=== PATIENT | female | born 1955 | race Caucasian/White ===

== ENCOUNTER → 2019-03-10 10:12 | Outpatient (BNVA) | payer MEDICARE, SELFPAY | PROVIDERS: Family Provider Family Medicine; PCP Family Medicine; Visit Provider Orthopaedic Surgery | DX: M25.562 Pain in left knee (principal); M25.561 Pain in right knee | CPT/HCPCS: 73565 ==

== ENCOUNTER 2019-09-19 09:03 | Observation (INO) | payer MEDICARE, SELFPAY ==
[2019-09-19] VITALS (36 sets, daily range): BP systolic 101–195; BP diastolic 59–115; PULSE 76–139; RESP 14–26; TEMP 36.7–37; O2SAT 92–97; BMI 46.3
--- NOTE | 2019-09-19 09:41 | ECG_ITS ---
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 Measurements Intervals [place] Rate: 141 P: [place]: -1 QRS: 34 QRSD: 92 T: 7 QT: 307 QTc: 472 Interpretive Statements ATRIAL FIBRILLATION WITH RAPID VENTRICULAR RESPONSE LOW QRS VOLTAGE IN PRECORDIAL LEADS [QRS DEFLECTION < 1.0 mV IN CHEST LEADS] ABNORMAL RHYTHM ECG No previous ECG available for comparison Electronically Signed On 09-19-2019 20:43:15 CDT by Eliecer Hernandez M.D. [id number]
--- NOTE | 2019-09-19 09:42 | XRR_ITS ---
PROCEDURE INFORMATION: Exam: XR Chest, 1 View Exam date and time: 09/19/2019 9:53 AM Age: 63 years old Clinical indication: Cough and dyspnea; Additional info: Dyspnea/cough TECHNIQUE: Imaging protocol: XR of the chest Views: 1 view. COMPARISON: No relevant prior studies available. FINDINGS: Lungs: Lungs are well aerated without a focal area of consolidation. Pleural space: Unremarkable. No pleural effusion. No pneumothorax. Heart/Mediastinum: Cardiac silhouette is enlarged. Bones/joints: Unremarkable. XR/XR chest 1V portable [id number] IMPRESSION: Lungs are well aerated without a focal area of consolidation.
--- NOTE | 2019-09-19 09:43 | W.ED.ARRPALP ---
HPI - Arrhythmia/Palpitations General: Chief Complaint: Arrhythmia/Palpitations Stated Complaint: POSS AFIB Time Seen by Provider: 09/19/19 09:14 History of Present Illness: HPI narrative: 63-year-old female presented this morning to Dr. Sky's office for a elective cataract surgery and her preop phase was found to be in A. fib with RVR they are unable to get into primary care doctor's office so she was directed to the emergency room she is completely asymptomatic both at the doctor's office and here. She does notice she gets short of breath when she does a certain amount of activity but she states it is about the same level of exertion bring about the shortness of breath as always. MD complaint: irregular heart beat Onset (ago): unknown Severity: moderate Context: other (Found during preop for elective cataract surgery) Arrhythmia history: other (No known previous arrhythmias) Associated symptoms: Reports no associated symptoms; Deny nausea or vomiting Review of Systems Const: Denies: fever(s), chills, body aches, change in appetite, fatigue or malaise ENMT: Denies: throat pain, ear or mastoid pain, nasal discharge or nasal congestion Card: Denies: chest pain, edema, dyspnea on exertion or orthopnea Resp: Denies: dyspnea, productive cough or non-productive cough GI: Denies: abdominal pain, nausea, vomiting, hematemesis, coffee ground emesis, diarrhea, constipation, bloating, hematochezia or melena : Denies: flank pain, difficulty voiding, dysuria, urinary frequency or urinary urgency Skin/Breast: Denies: rash or pruritus PFSH ED PFSH: Medical History (Updated 09/21/19 @ 00:00 by ) BMI 45.0-49.9, adult Degenerative arthritis of right knee Diabetes mellitus Diabetic neuropathy Hypertension Osteoarthritis of knees, bilateral Osteoarthritis of left knee Surgical History History of breast biopsy History of colonoscopy History of D&C Family History Father Cancer Grandfather Cancer Grandmother Cancer Dementia Mother Dementia Denies family history of Diabetes CAD (coronary artery disease) Clotting disorder Hyperlipidemia Psychiatric illness Chronic kidney disease (CKD) Suicide Anesthesia complication Bleeding disorder Family history of premature coronary artery disease Lung disease Hypertension Stroke Social History Smoking and tobacco status: never smoked Second hand smoke exposure: No Alcohol intake: never Current occupational status: retired Physical Exam Const: COMMON NORMALS: no acute distress GENERAL APPEARANCE: cooperative and comfortable ORIENTATION/CONSCIOUSNESS: Yes awake, Yes oriented to person, Yes oriented to place and Yes oriented to time HENMT: COMMON NORMALS: normocephalic and atraumatic HEAD & SCALP: normocephalic and atraumatic Eye: COMMON NORMALS: Equal, round and reactive pupils present, EOMs intact bilaterally, conjunctivae normal and no scleral icterus CONJUNCTIVA: Yes conjunctivae normal PUPIL: Yes Equal, round and reactive pupils present Neck/C-Spine: COMMON NORMALS: full ROM, no lymphadenopathy, supple and no JVD Lymph: LYMPHATIC: no lymphadenopathy noted and no lymphedema noted Resp: COMMON NORMALS: normal respiratory effort, No retractions, No use of accessory muscles and clear to auscultation bilaterally AUSCULTATION: clear to auscultation bilaterally Cardio: COMMON NORMALS: no JVD and No murmurs present (Cardio) RATE: tachycardic RHYTHM: abnormal rhythm irregularly irregular GI: COMMON NORMALS: Soft to palpation and No hepatosplenomegaly present AUSCULTATION: Yes normoactive bowel sounds PALPATION: Yes Soft to palpation, No Tenderness to palpation present (GI), No Guarding due to palpation present (GI) and Yes No hepatosplenomegaly present Extremity: COMMON NORMALS: normal to inspection, capillary refill normal, no clubbing, cyanosis or edema, no calf tenderness and no pedal edema Neuro: SENSORIUM/ORIENTATION: Yes oriented to person, Yes oriented to place and Yes oriented to time Skin: COMMON NORMALS: no rashes or lesions noted GENERAL SKIN EXAM: no rashes or lesions noted Course Vital Signs: Vital signs: Vital Signs Temperature 98.3 F 09/20/19 17:06 Pulse Rate 93 09/20/19 17:06 Respiratory Rate 16 09/20/19 17:06 Blood Pressure 136/68 09/20/19 17:06 Pulse Oximetry 93 09/20/19 17:06 MDM - Arrhythmia/Palpitations MDM Narrative: Medical decision making narrative: Patient presents in A. fib with rapid ventricular response. Started on diltiazem raise began to be controlled will admit to CSU. Lab Data: Labs: Lab Results 09/19/19 09/19/19 09/19/19 Range/Units 09:35 09:35 09:35 WBC 10.2 H (4.0-10.0) 10^3/ uL RBC 4.20 (4.1-5.3) 10^6/u L Hgb 11.2 L (11.5-15.3) g/dL Hct 35.3 L (37.0-47.0) % MCV 84.0 (81-99) fL MCH 26.7 L (28.0-34.0) pg MCHC 31.7 (30.0-36.0) g/dL RDW 15.7 H (12.1-15.1) % Plt Count 392 (130-400) 10^3/c mm MPV 9.8 (7.4-10.4) fL Neut % (Auto) 81.1 % Lymph % (Auto) 10.4 % Woodruff % (Auto) 5.5 % Eos % (Auto) 1.3 % Baso % (Auto) 0.6 % Neut # (Auto) 8.32 H (1.8-7.7) 10^3/u L Lymph # (Auto) 1.1 (0.8-4.8) 10^3/u L Woodruff # (Auto) 0.6 (0.2-0.9) 10^3/u L Eos # (Auto) 0.1 (0.0-0.8) 10^3/u L Baso # (Auto) 0.1 (0.0-0.1) 10^3/u L Nucleated RBC % (a uto) 0 % Nucleated RBCs # 0.0 /100WBC Sodium 140 (136-145) mmol/L Potassium 4.5 (3.5-5.1) mmol/L Chloride 101 (98-107) mmol/L Carbon Dioxide 26 (22-29) mmol/L Anion Gap 17.5 (5-19) BUN 24 H (8-23) mg/dL Creatinine 1.0 H (0.5-0.9) mg/dL GFR Calculation 55.6 L (90-130) mL/min Glucose 200 H (65-115) mg/dL Calculated Osmolal ity 292 (285-295) mOsm/k g Calcium 9.0 (8.5-10.5) mg/dL Total Bilirubin 0.8 (0.15-1.2) mg/dL AST 14 (0-32) U/L ALT 9 (0-33) U/L Alkaline Phosphata se 80 (35-105) IU/L Troponin T Baselin e 37 H (0-10) ng/L Total Protein 7.0 (6.6-8.7) g/dL Albumin 4.0 (3.5-5.2) g/dL Globulin 3.0 (1.3-4.6) g/dL TSH (0.27-4.20) uIU/ mL 09/19/19 Range/Units 09:35 WBC (4.0-10.0) 10^3/ uL RBC (4.1-5.3) 10^6/u L Hgb (11.5-15.3) g/dL Hct (37.0-47.0) % MCV (81-99) fL MCH (28.0-34.0) pg MCHC (30.0-36.0) g/dL RDW (12.1-15.1) % Plt Count (130-400) 10^3/c mm MPV (7.4-10.4) fL Neut % (Auto) % Lymph % (Auto) % Woodruff % (Auto) % Eos % (Auto) % Baso % (Auto) % Neut # (Auto) (1.8-7.7) 10^3/u L Lymph # (Auto) (0.8-4.8) 10^3/u L Woodruff # (Auto) (0.2-0.9) 10^3/u L Eos # (Auto) (0.0-0.8) 10^3/u L Baso # (Auto) (0.0-0.1) 10^3/u L Nucleated RBC % (a uto) % Nucleated RBCs # /100WBC Sodium (136-145) mmol/L Potassium (3.5-5.1) mmol/L Chloride (98-107) mmol/L Carbon Dioxide (22-29) mmol/L Anion Gap (5-19) BUN (8-23) mg/dL Creatinine (0.5-0.9) mg/dL GFR Calculation (90-130) mL/min Glucose (65-115) mg/dL Calculated Osmolal ity (285-295) mOsm/k g Calcium (8.5-10.5) mg/dL Total Bilirubin (0.15-1.2) mg/dL AST (0-32) U/L ALT (0-33) U/L Alkaline Phosphata se (35-105) IU/L Troponin T Baselin e (0-10) ng/L Total Protein (6.6-8.7) g/dL Albumin (3.5-5.2) g/dL Globulin (1.3-4.6) g/dL TSH 1.94 (0.27-4.20) uIU/ mL Discharge Plan Discharge Patient Disposition: Admitted As Inpatient Admit Provider: Lilibeth Villalpando Condition: Stable Referrals: Brianna Gonzales MD [Primary Care Provider] - 1-3 days (You have an follow-up appointment with Dr. Gonzales on September 25 at 10:00a.m. If you have any questions or need to reschedule. Please call ) Winifred Kincaid FNP [Nurse Practitioner] - 1 week (You have an follow-up appointment with Winifred Kincaid on September 27 at 10:00a.m. If you have questions or need to reschedule. Please call ) Discharge Diet: Cardiac and Diabetic Discharge Activity: Increase activity as tolerated Patient Instructions: Metoprolol (By mouth), Diltiazem (By mouth), Apixaban (By mouth), Atrial Fibrillation (DC), Diabetes Mellitus Type 2 in Adults (DC), Hypertension (DC) Additional Instructions: You were admitted to the hospital and diagnosed with atrial fibrillation, irregular heartbeat. You were started on medications to help with heart rate control. -Continue on metoprolol 50 mg twice daily, take this 12 hours apart -Started on Cardizem. First 2 doses of Cardizem will be 60mg every 6 hours. Take first dose on 09/20/19 at 6pm. Then take 2nd dose of cardizem 60mg at midnight. When you wake up on 09/21/19 take Cardizem CD 240mg and continue on this daily. -Atrial fibrillation can place you at increased risk of stroke, therefore a blood thinner was prescribed to help decrease this risk. The blood thinner that you are prescribed is Eliquis 5mg twice daily Please call your physician or present to the ED for any acute illness or concerns. Any chest pain or shortness of breath present to the ED. Please check your blood pressure and present a log to your PCP and monitor heart rate. If your heart rate is less than 60 please call your physician. Stop taking enalapril/HCTZ at this time. Discharge Date/Time: 09/19/19 17:38 Coding Level of Care Code ED Infection Control Rn for Ching Fwd Exam Comprehensive
[2019-09-19 09:53] LABS: Basophils # 0.1 10^3/uL (0.0-0.1); Basophils % 0.6 %; Eosinophils # 0.1 10^3/uL (0.0-0.8); Eosinophils % 1.3 %; Hematocrit 35.3 % (37.0-47.0); Hemoglobin 11.2 g/dL (11.5-15.3); Lymphocytes # 1.1 10^3/uL (0.8-4.8); Lymphocytes % 10.4 %; Mean Corpuscular HGB Conc 31.7 g/dL (30.0-36.0); Mean Corpuscular Hemoglobin 26.7 pg (28.0-34.0); Mean Platelet Volume 9.8 fL (7.4-10.4); Monocytes # 0.6 10^3/uL (0.2-0.9); Monocytes % 5.5 %; Neutrophils # 8.32 10^3/uL (1.8-7.7); Neutrophils % 81.1 %; Nucleated Red Blood Cells % 0 %; Platelet Count 392 10^3/cmm (130-400); Red Cell Distribution Width 15.7 % (12.1-15.1); White Blood Count 10.2 10^3/uL (4.0-10.0)
[2019-09-19 10:05] LABS: Troponin(5th) Baseline 37 ng/L (0-10)
[2019-09-19 10:06] LABS: Alanine Aminotransferase 9 U/L (0-33); Alkaline Phosphatase 80 IU/L (35-105); Anion Gap 17.5 (5-19); Aspartate Amino Transferase 14 U/L (0-32); Blood Urea Nitrogen 24 mg/dL (8-23); Carbon Dioxide 26 mmol/L (22-29); Chloride 101 mmol/L (98-107); Creatinine Clr Calc Pharmacy 72.4342; Glomerular Filtration Rate 55.6 mL/min (90-130); Glucose 200 mg/dL (65-115); Osmolality Calculated 292 mOsm/kg (285-295); Potassium 4.5 mmol/L (3.5-5.1); Sodium 140 mmol/L (136-145); Total Bilirubin 0.8 mg/dL (0.15-1.2)
[2019-09-19] MEDS: sodium chloride 0.9% 500 ML 999 ML IV (10:41)
[2019-09-19 11:00] LABS: Thyroid Stimulating Hormone 1.94 uIU/mL (0.27-4.20)
--- NOTE | 2019-09-19 11:08 | PM.HP ---
Providers/Chief Complaint Admitting Physician: Lilibeth Villalpando DO Primary Care Provider: Brianna Gonzales MD Chief Complaint: POSS AFIB History of Present Illness Jaci Mejía is a 63 year old female with a past medical history of hypertension and diabetes that presented to the emergency department today from outpatient surgery center. Patient was scheduled to have cataract surgery today when she arrived for her preop evaluation she was noted to have rapid heart rate. EKG was performed which showed concern for atrial fibrillation. She was then sent to the ER for further evaluation and treatment. Patient denies any recent illness, no fevers or chills. She denies any history of any irregular heartbeat that she is aware of. She denies any chest pain or shortness of breath, denies any palpitations, no lightheadedness or dizziness. She stated that she has been doing well with no concerns. Reported that she was taken off of her duloxetine slowly over the past couple of months but no other recent medication changes. She reports that her diabetes is currently diet controlled, her last hemoglobin A1c was 7 after she had been taken off of glipizide and metformin. Patient denies any cough or shortness of breath, no exposure to anyone under investigation are positive for COVID-19. Patient was seen and evaluated in the emergency department noted to have concern for atrial fibrillation with RVR and started on a Cardizem drip and placed on observation. Review of Systems Const: Denies: fever(s) or chills Eyes: Denies: change in vision ENMT: Denies: nasal congestion Card: Denies: chest pain, palpitations or edema Resp: Denies: dyspnea, productive cough or hemoptysis GI: Reports: constipation; Denies: abdominal pain, nausea, vomiting, diarrhea, hematochezia or melena : Denies: dysuria or hematuria Musc: Denies: extremity pain or muscle cramps Skin/Breast: Denies: rash or new lesions Neuro: Denies: headache(s) or dizziness Psych: Denies: anxiety or depression Endo: Denies: polyuria or hot flashes Nic/Lymph: Denies: easy bruising or easy bleeding Medications/Allergies Home Medications Medication Instructions Recorded Confirmed Last Taken Type enalapril 10 1 tab PO QAM 03/10/19 09/19/19 09/19/19 History mg-hydrochlorothiazide 25 mg tablet fexofenadine See Rx Instructions .ROUTE .COMPLEX 03/10/19 09/19/19 09/18/19 History fluticasone propionate 50 2 spray INTRANASAL QDAY 03/10/19 09/19/19 09/18/19 History mcg/actuation nasal spray,suspension gabapentin 300 mg capsule 300 mg PO BID 03/10/19 09/19/19 09/19/19 History naproxen 500 mg tablet 500 mg PO BID 03/10/19 09/19/19 09/17/19 History Diabetic Shoes #1 each 07/25/19 09/19/19 Unknown Rx difluprednate [Durezol] See Rx Instructions .ROUTE .COMPLEX 09/19/19 09/19/19 09/18/19 History nepafenac [Ilevro] See Rx Instructions .ROUTE .COMPLEX 09/19/19 09/19/19 09/18/19 History Allergies Allergy/AdvReac Type Severity Reaction Status Date / Time No Known Allergies Allergy Verified 09/19/19 10:24 PFSH Acute PFSH: Medical History (Updated 09/19/19 @ 11:21 by Lilibeth Villalpando DO) BMI 45.0-49.9, adult Degenerative arthritis of right knee Diabetes mellitus Diabetic neuropathy Hypertension Osteoarthritis of knees, bilateral Osteoarthritis of left knee Surgical History History of breast biopsy History of colonoscopy History of D&C Family History Father Cancer Grandfather Cancer Grandmother Cancer Dementia Mother Dementia Denies family history of Diabetes CAD (coronary artery disease) Clotting disorder Hyperlipidemia Psychiatric illness Chronic kidney disease (CKD) Suicide Anesthesia complication Bleeding disorder Family history of premature coronary artery disease Lung disease Hypertension Stroke Social History Smoking and tobacco status: never smoked Second hand smoke exposure: No Alcohol intake: never Current occupational status: retired Vitals/I&O/Wt Last Vital Signs Temp 98.1 F 09/19/19 09:11 Pulse 139 H 09/19/19 10:15 Resp 20 H 09/19/19 10:15 BP 133/70 09/19/19 10:15 Pulse Ox 95 09/19/19 10:15 09/18/19 09/19/19 09/19/19 22:59 06:59 14:59 Intake Total 4.9 / 4.9 Balance 4.9 / 4.9 Weight last 48 hrs Weight 122.47 kg Physical Exam Const: COMMON NORMALS: patient oriented x3 and alert GENERAL APPEARANCE: cooperative ORIENTATION/CONSCIOUSNESS: Yes awake, Yes oriented to person, Yes oriented to place and Yes oriented to time HENMT: COMMON NORMALS: normocephalic and atraumatic HEAD & SCALP: normocephalic and atraumatic Eye: COMMON NORMALS: Equal, round and reactive pupils present PUPIL: Yes Equal, round and reactive pupils present Neck/C-Spine: COMMON NORMALS: supple GENERAL: Yes normal visual inspection Resp: COMMON NORMALS: normal respiratory effort and clear to auscultation bilaterally EFFORT & INSPECTION: Yes able to speak in complete sentences AUSCULTATION: clear to auscultation bilaterally, no rhonchi and no wheezes Cardio: OTHER: Irregularly irregular, no appreciable murmur however tachycardic GI: COMMON NORMALS: Soft to palpation and non-tender INSPECTION: No abdominal distension AUSCULTATION: Yes normoactive bowel sounds PALPATION: Yes Soft to palpation : COMMON NORMALS: Yes no CVA tenderness BLADDER/KIDNEY EXAM: Yes no CVA tenderness Back/Pelvis: COMMON NORMALS: no CVA tenderness Extremity: COMMON NORMALS: no clubbing, cyanosis or edema and no calf tenderness Neuro: COMMON NORMALS: patient oriented x3, CN's II-XII intact bilaterally, moves all extremities and no focal motor deficits SENSORIUM/ORIENTATION: Yes alert, Yes oriented to person, Yes oriented to place and Yes oriented to time SPEECH: speech normal Psych: COMMON NORMALS: mental status grossly normal and cooperative Skin: COMMON NORMALS: no rashes or lesions noted GENERAL SKIN EXAM: no rashes or lesions noted Data : 09/19/19 09:35 09/19/19 09:35 CXR: I personally reviewed and interpreted this imaging study as follows: Radiologist's impression: FINDINGS: Lungs: Lungs are well aerated without a focal area of consolidation. Pleural space: Unremarkable. No pleural effusion. No pneumothorax. Heart/Mediastinum: Cardiac silhouette is enlarged. Bones/joints: Unremarkable. XR/XR chest 1V portable [id number] IMPRESSION: Lungs are well aerated without a focal area of consolidation. A&P Assessment and plan (1) Atrial fibrillation with RVR: New onset atrial fibrillation with RVR Appears slightly dry at time of exam will give very gentle IV fluids Given Cardizem while in the ED, will continue and if blood pressure is able to tolerate and patient remains tachycardic we will give IV metoprolol and transition to oral medications when appropriate Echocardiogram for further evaluation and treatment when heart rate is less than 100 Magnesium and phosphorus added Continue telemetry monitoring and serial EKG and troponin We will check TSH Chads score calculated patient has hypertension and diabetes, will start on treatment dose Lovenox at this time and transition to oral agent when appropriate. Status: Acute (2) Hypertension: Hold home enalapril/HCTZ as do not wish for patient to become hypotensive with medication adjustments for atrial fibrillation with RVR Status: Acute (3) Diabetes mellitus: Currently reported to be diet controlled, glucose of 200 on admission, will place on low-dose sliding scale insulin as needed We will check hemoglobin A1c Status: Acute Additional A&P Information Dehydration with elevated BUN and minimal elevation in creatinine, gentle IV fluids with close monitoring, strict intake and output as well as daily weights Cataract: Plan for outpatient cataract surgery today, however admitted for atrial fibrillation with RVR Leukocytosis: Minimal with no infectious etiology identified at this time, UA is pending. Likely stress reaction. Obesity DVT prophylaxis: On treatment dose Lovenox Diet: Cardiac, carbohydrate consistent CODE STATUS: Full code Attestations Medical Necessity Statement*: Observation due to new onset atrial fibrillation with RVR, expected stay less than 2 midnights Coding Level of Care Code Acute Retail Coverage Merchandiser Lead for [facility] Fwd Exam Comprehensive Diagnoses Atrial fibrillation with RVR I48.91 Hypertension I10 Diabetes mellitus E11.9
--- NOTE | 2019-09-19 11:41 | ECG_ITS ---
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 Measurements Intervals [place] Rate: 100 P: [place]: -1 QRS: 39 QRSD: 125 T: 39 QT: 352 QTc: 455 Interpretive Statements ATRIAL FIBRILLATION WITH RAPID VENTRICULAR RESPONSE MODERATE INTRAVENTRICULAR CONDUCTION DELAY [110+ ms QRS DURATION] ABNORMAL RHYTHM ECG Compared to ECG 09/19/2019 09:32:02 Intraventricular conduction delay now present Electronically Signed On 09-19-2019 20:46:04 CDT by Eliecer Hernandez M.D. [id number]
[2019-09-19 11:59] LABS: Troponin 5 2HR 29.49 ng/L (0-10)
[2019-09-19 12:00] LABS: Troponin 5 2HR Delta -7.51 ABS# (0-10)
[2019-09-19 14:10] LABS: Add Urine Microscopic? NO
[2019-09-19 14:13] LABS: Bilirubin Urine Neg (NEGATIVE); Blood Urine Neg (Negative); Glucose Urine UA Norm (Normal); Ketones Urine Negative (Negative); Leukocyte Esterase Urine Negative (Negative); Nitrate Urine Negative (Negative); Protein Urine Neg (Negative); Urine Appearance Clear (CLEAR); Urine Color Yellow (Yellow); Urobilinogen Urine Neg (Negative); pH Urine 6 (5-7)
--- NOTE | 2019-09-19 15:41 | ECG_ITS ---
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 Measurements Intervals [place] Rate: 113 P: [place]: -1 QRS: 45 QRSD: 94 T: 5 QT: 348 QTc: 478 Interpretive Statements ATRIAL FIBRILLATION WITH RAPID VENTRICULAR RESPONSE LOW QRS VOLTAGE IN PRECORDIAL LEADS [QRS DEFLECTION < 1.0 mV IN CHEST LEADS] NONSPECIFIC T-WAVE ABNORMALITY ABNORMAL RHYTHM ECG Compared to ECG 09/19/2019 11:35:30 Low QRS voltage now present T-wave abnormality now present Intraventricular conduction delay no longer present Electronically Signed On 09-19-2019 20:46:16 CDT by Eliecer Hernandez M.D. [id number]
[2019-09-19 16:27] LABS: Troponin 5 6HR 28.48 ng/L (0-10)
--- NOTE | 2019-09-19 17:50 | PC.NURSE ---
Patient arrived to floor from ER. Patient ambulated self from wheelchair to bed. Patient has personal cane at bedside. Patient A&Ox4. Currently afib, HR>100 on monitor. Cardizem increased to 10 mg/hr, see infusion spreadsheet. See physical and VS assessments. Patient oriented to room and call light. No needs identified at this time. Nurse to continue to monitor.
[2019-09-19] MEDS: sodium chloride 0.9% 1,000 ML 50 ML IV (17:56)
[2019-09-19] MEDS: docusate sodium 100 mg Capsule PO (18:03)
[2019-09-19] MEDS: metoprolol tartrate 25 mg Tablet PO (18:03)
[2019-09-19] MEDS: gabapentin 300 mg Capsule PO (18:03)
[2019-09-19 18:05] LABS: Glucose Point of Care 224 mg/dL (70-110)
[2019-09-19] MEDS: enoxaparin 120 mg/0.8 mL Syringe SUBCUT (18:07)
[2019-09-19 18:26] LABS: Magnesium 1.9 mg/dL (1.7-2.3); NT Pro B Type Natriuretic Pept 946 pg/mL (0-125); Phosphorus 3.7 mg/dL (2.5-4.5)
[2019-09-19 20:19] LABS: Glucose Point of Care 153 mg/dL (70-110)
--- NOTE | 2019-09-19 22:58 | PC.NURSE ---
Patient's heart rate is currently running in the 80s with Cardizem running at 5. Will continue to monitor and titrate/wean off Cardizem drip as needed. Will monitor blood pressure and heart rate frequently.
[2019-09-20] VITALS (38 sets, daily range): BP systolic 97–151; BP diastolic 56–107; PULSE 77–116; RESP 13–27; TEMP 36.7–37.1; O2SAT 92–97
--- NOTE | 2019-09-20 04:13 | PC.NURSE ---
Patient does not have any complaints at this time. Blood pressure is stable. Heart rate is ranging 80s-110 with Cardizem at 5. Will monitor.
[2019-09-20 04:28] LABS: Basophils % 0.5 %; Eosinophils # 0.2 10^3/uL (0.0-0.8); Hematocrit 32.2 % (37.0-47.0); Lymphocytes # 1.3 10^3/uL (0.8-4.8); Lymphocytes % 15.9 %; Mean Corpuscular HGB Conc 31.1 g/dL (30.0-36.0); Mean Corpuscular Hemoglobin 26.5 pg (28.0-34.0); Mean Corpuscular Volume 85.4 fL (81-99); Mean Platelet Volume 10.2 fL (7.4-10.4); Monocytes # 0.6 10^3/uL (0.2-0.9); Monocytes % 6.6 %; Neutrophils # 6.13 10^3/uL (1.8-7.7); Neutrophils % 73.9 %; Nucleated Red Blood Cells % 0 %; Platelet Count 346 10^3/cmm (130-400); Red Blood Count 3.77 10^6/uL (4.1-5.3); White Blood Count 8.3 10^3/uL (4.0-10.0)
[2019-09-20 04:41] LABS: Anion Gap 14.4 (5-19); Blood Urea Nitrogen 23 mg/dL (8-23); Calcium 9.2 mg/dL (8.5-10.5); Carbon Dioxide 26 mmol/L (22-29); Chloride 103 mmol/L (98-107); Glomerular Filtration Rate 62.8 mL/min (90-130); Glucose 178 mg/dL (65-115); Osmolality Calculated 289 mOsm/kg (285-295); Potassium 4.4 mmol/L (3.5-5.1); Sodium 139 mmol/L (136-145)
[2019-09-20 04:44] LABS: Chol HDL Ratio 3.83 mg/dL (0.0-4.40); Cholesterol 138 mg/dL (0-200); HDL Cholesterol 36 mg/dL (60-100); LDL Cholesterol Calculated 74 mg/dL (50-129); LDL HDL Ratio 2.06 RATIO (0.00-3.22); Triglycerides 139 mg/dL (0-150)
[2019-09-20] MEDS: enoxaparin 120 mg/0.8 mL Syringe SUBCUT (05:00)
[2019-09-20 06:14] LABS: Glucose Point of Care 189 mg/dL (70-110)
[2019-09-20] MEDS: metoprolol tartrate 25 mg Tablet PO ×2 (08:07→09:03)
[2019-09-20] MEDS: gabapentin 300 mg Capsule PO (08:07)
[2019-09-20] MEDS: fluticasone nasal spray 16gm Btl 2 SPRAY INTRANASAL (08:08)
[2019-09-20] MEDS: docusate sodium 100 mg Capsule PO (08:08)
--- NOTE | 2019-09-20 09:01 | PC.NURSE ---
Dr. Villalpando at bedside. Physician to make medication adjustments. If HR is controlled, possible d/c this pm.
--- NOTE | 2019-09-20 10:11 | PC.CHAP ---
Pastoral Care Encounter/Spiritual Assessment Type of Contact [] Declined control integration engineer visit [] Patient/Family/Request visit [] Outpatient visit [] Follow-up visit [] Physician referral [] Code/Alert [x] Routine visit [] Staff referral [] Actively dying [] Patient sleeping [] Family support [] [] Out of room [] Palliative care [] [] Receiving care in room [] Pre-surgical visit [] Trauma [] Long length of stay [] ICU visit [] Other: Relational/Emotional Strength [] Patient feels connected with others/family/visitors/staff [] Distress [] Loneliness/isolation [] Abandonment Spirituality of Patient [] Person of Cathy [] Attends Alevism of their Cathy [] Believes in Prayer [] Reads Bible or Yazidi materials [] There are Spiritual issues to be addressed Nurses Educator Interventions [x] Prayer [x] Active listening [x] Non-anxious presence [x] Spiritual/emotional support [] Crisis/trauma care [] Spiritual counseling [] Bereavement support [] Provided bereavement packet [] Provided Bible/devotional materials [] Provided toy/stuffed animal, coloring book to patient or family member [] Provided Communion [] Anointing/[place] [] Salvation [x] Completed spiritual assessment [] Other: Impact on Illness or Injury [] Angry [] Fearful [] Anxious [] Often cries [] Exhaustion [] Unable to work [] Unable to attend bahai [] Unable to walk/stand [] Unable to read [] Unable to drive [] Unable to eat/drink [] Unable to sleep [] Unable to be with family [] Patient intubated [] Other: Summary Patient tired, not resting well. Time spent with patient 10 min
[2019-09-20 11:41] LABS: Glucose Point of Care 225 mg/dL (70-110)
[2019-09-20] MEDS: dilTIAZem 60 mg Tablet PO (11:48)
--- NOTE | 2019-09-20 12:28 | PC.NURSE ---
Cardizem gtt Patient HR maintianing 80s-90s. Dr. Villalpando instructed nurse to keep gtt on for 2 hour bridge therapy after administering PO Cardizem. Nurse to continue to monitor.
--- NOTE | 2019-09-20 12:53 | PC.RESP ---
PATIENT DOES NOT HAVE A QUALIFYING HX OF LUNG DISEASE AND DOES NOT QUALIFY FOR PULMONARY REHAB AT THIS TIME.
--- NOTE | 2019-09-20 14:54 | P.DS_ITS ---
Discharge Providers Date of Admission: 09/19/19 10:53 Date of Discharge: September 20, 2019 Attending Provider at Admission: Lilibeth Villalpando DO Attending Provider at Discharge: Lilibeth Villalpando DO Primary Care Provider: Brianna Gonzales MD Diagnoses at Discharge Discharge Diagnosis (1) Atrial fibrillation with RVR: Status: Acute (2) Hypertension: Status: Acute (3) Diabetes mellitus: Status: Acute Reason for Visit Reason for Visit: POSS AFIB Hospital Course Hospital Course: Patient was seen and evaluated at outpatient surgery center for cataract surgery when she was noted to have tachycardia. EKG was performed which showed atrial fibrillation with RVR and patient was sent to the emergency department for further evaluation and treatment. Patient was asymptomatic but remained in atrial fibrillation with RVR with a heart rate into the 140s. She was started on a Cardizem drip and admitted for further evaluation and treatment. She was continued on a Cardizem drip and also started on oral metoprolol. Heart rate continued to improve however patient remained in atrial fibrillation, she was also started on treatment dose Lovenox while hospitalized. She continued to remain asymptomatic, no chest pain or shortness of breath, no lightheadedness or dizziness, no syncopal or presyncopal episodes. She was transitioned to oral Cardizem and heart rate remained less than 100 and patient remained asymptomatic and was requesting discharge to home. Discussed with patient plan for discharge to home with close cardiology follow-up and establishment with cardiology as well as close primary care provider follow-up. Discussed with patient risk for CVA with atrial fibrillation and with her diabetes and hypertension, discussed the recommendation for anticoagulation with Farida, she verbalized understanding and agreed with plan. At time of discharge patient was awake and sitting on the side of the bed denied any concerns and stated that she felt ready for discharge to home. Discussed with her in detail plan for short acting Cardizem today with transition to extended release Cardizem tomorrow morning while continuing on metoprolol twice daily, discontinuation of enalapril hydrochlorothiazide. Patient verbalized understanding Physical Exam Const: COMMON NORMALS: patient oriented x3 and alert GENERAL APPEARANCE: cooperative ORIENTATION/CONSCIOUSNESS: Yes awake, Yes oriented to person, Yes oriented to place and Yes oriented to time HENMT: COMMON NORMALS: normocephalic and atraumatic HEAD & SCALP: normocephalic and atraumatic Eye: COMMON NORMALS: Equal, round and reactive pupils present PUPIL: Yes Equal, round and reactive pupils present Neck/C-Spine: COMMON NORMALS: supple GENERAL: Yes normal visual inspection Resp: COMMON NORMALS: normal respiratory effort and clear to auscultation bilaterally EFFORT & INSPECTION: Yes able to speak in complete sentences AUSCULTATION: clear to auscultation bilaterally, no rhonchi and no wheezes Cardio: OTHER: Irregularly irregular, no appreciable murmur GI: COMMON NORMALS: Soft to palpation and non-tender INSPECTION: No abdominal distension AUSCULTATION: Yes normoactive bowel sounds PALPATION: Yes Soft to palpation Extremity: COMMON NORMALS: no clubbing, cyanosis or edema and no calf tenderness Neuro: COMMON NORMALS: patient oriented x3, CN's II-XII intact bilaterally, moves all extremities and no focal motor deficits SENSORIUM/ORIENTATION: Yes alert, Yes oriented to person, Yes oriented to place and Yes oriented to time SPEECH: speech normal Psych: COMMON NORMALS: mental status grossly normal and cooperative Skin: COMMON NORMALS: no rashes or lesions noted GENERAL SKIN EXAM: no rashes or lesions noted Discharge Data Data Completed and Pending: Completed Studies During Hospitalization Category Date Time Status XR chest 1V agusto ble [id number] Stat Exams 09/19/19 09:42 Completed Pending at discharge Category Date Time Status Basic Metabolic P maurilio AM LABS Lab 09/21/19 04:00 Ordered Basic Metabolic P maurilio AM LABS Lab 09/22/19 04:00 Ordered Complete Blood Co unt w/Auto AM LABS Lab 09/21/19 04:00 Ordered Complete Blood Co unt w/Auto AM LABS Lab 09/22/19 04:00 Ordered CV echo complete* [id number] Routine Ultrasound 09/20/19 17:34 Taken Labs from last 24 hours 09/20/19 09/20/19 09/20/19 11:37 06:10 03:15 WBC RBC Hgb Hct MCV MCH MCHC RDW Plt Count MPV Neut % (Auto) Lymph % (Auto) [place] % (Auto) Eos % (Auto) Baso % (Auto) Neut # (Auto) Lymph # (Auto) [place] # (Auto) Eos # (Auto) Baso # (Auto) Nucleated RBC % (a uto) Nucleated RBCs # Sodium Potassium Chloride Carbon Dioxide Anion Gap BUN Creatinine GFR Calculation Glucose POC Glucose 225 189 Calculated Osmolal ity Calcium Phosphorus Magnesium Troponin T Hi Sens 6Hr Troponin T Hi Sens 6Hr Delta NT-Pro-B Natriuret Pep Triglycerides 139 Cholesterol 138 LDL Cholesterol, C alc 74 HDL Cholesterol 36 L LDL/HDL Ratio 2.06 Cholesterol/HDL Ra francisco 3.83 09/20/19 09/20/19 09/19/19 03:15 03:15 20:15 WBC 8.3 RBC 3.77 L Hgb 10.0 L Hct 32.2 L MCV 85.4 MCH 26.5 L MCHC 31.1 RDW 16.0 H Plt Count 346 MPV 10.2 Neut % (Auto) 73.9 Lymph % (Auto) 15.9 [place] % (Auto) 6.6 Eos % (Auto) 2.0 Baso % (Auto) 0.5 Neut # (Auto) 6.13 Lymph # (Auto) 1.3 [place] # (Auto) 0.6 Eos # (Auto) 0.2 Baso # (Auto) 0.0 Nucleated RBC % (a uto) 0 Nucleated RBCs # 0.0 Sodium 139 Potassium 4.4 Chloride 103 Carbon Dioxide 26 Anion Gap 14.4 BUN 23 Creatinine 0.9 GFR Calculation 62.8 L Glucose 178 H POC Glucose 153 Calculated Osmolal ity 289 Calcium 9.2 Phosphorus Magnesium Troponin T Hi Sens 6Hr Troponin T Hi Sens 6Hr Delta NT-Pro-B Natriuret Pep Triglycerides Cholesterol LDL Cholesterol, C alc HDL Cholesterol LDL/HDL Ratio Cholesterol/HDL Ra francisco 09/19/19 09/19/19 09/19/19 18:00 15:25 15:25 WBC RBC Hgb Hct MCV MCH MCHC RDW Plt Count MPV Neut % (Auto) Lymph % (Auto) [place] % (Auto) Eos % (Auto) Baso % (Auto) Neut # (Auto) Lymph # (Auto) [place] # (Auto) Eos # (Auto) Baso # (Auto) Nucleated RBC % (a uto) Nucleated RBCs # Sodium Potassium Chloride Carbon Dioxide Anion Gap BUN Creatinine GFR Calculation Glucose POC Glucose 224 Calculated Osmolal ity Calcium Phosphorus 3.7 Magnesium 1.9 Troponin T Hi Sens 6Hr 28.48 H Troponin T Hi Sens 6Hr Delta -8.52 L NT-Pro-B Natriuret Pep 946 H Triglycerides Cholesterol LDL Cholesterol, C alc HDL Cholesterol LDL/HDL Ratio Cholesterol/HDL Ra francisco Vitals: Last Vital Signs Temp 98.7 F 09/20/19 11:08 Pulse 85 09/20/19 14:00 Resp 13 09/20/19 14:00 BP 123/77 09/20/19 14:00 Pulse Ox 92 09/20/19 13:52 Discharge Plan Discharge Patient Disposition: Home Condition: Stable Prescriptions: New metoprolol tartrate 50 mg Tablet 50 mg PO BID 30 Days Qty: 60 RF: 0 diltiazem HCl 60 mg Tablet 60 mg PO Q6H 1 Days Qty: 2 RF: 0 Cardizem CD 240 mg capsule,extended release 24hr 240 mg PO DAILY 30 Days Qty: 30 RF: 0 Eliquis 5 mg tablet 5 mg PO BID 30 Days Qty: 60 RF: 0 Continued gabapentin 300 mg capsule 300 mg PO BID RF: 0 fluticasone propionate 50 mcg/actuation spray,suspension 2 spray INTRANASAL QDAY RF: 0 fexofenadine See Rx Instructions .ROUTE .COMPLEX RF: 0 (DME) Diabetic Shoes See Rx Instructions .ROUTE .MEDSUPPLY Qty: 1 RF: 0 Durezol 0.05 % drops See Rx Instructions .ROUTE .COMPLEX RF: 0 Ilevro 0.3 % drops,suspension See Rx Instructions .ROUTE .COMPLEX RF: 0 Discontinued enalapril-hydrochlorothiazide 10-25 mg tablet 1 tab PO QAM RF: 0 naproxen 500 mg tablet 500 mg PO BID RF: 0 Discharge Orders: Discharge Order (Routine); Ordered 09/20/19 Ordered By: Lilibeth Villalpando Referrals: Brianna Gonzales MD [Primary Care Provider] - 1-3 days Winifred Kincaid FNP [Nurse Practitioner] - 1 week (Follow up with cardiology clinic as soon as first appointment is available then follow up with technology administrator after as directed) Discharge Diet: Cardiac and Diabetic Discharge Activity: Increase activity as tolerated Patient Instructions: Metoprolol (By mouth), Diltiazem (By mouth), Apixaban (By mouth), Atrial Fibrillation (DC), Diabetes Mellitus Type 2 in Adults (DC), Hypertension (DC) Activity Restrictions/Additional Instructions: You were admitted to the hospital and diagnosed with atrial fibrillation, irregular heartbeat. You were started on medications to help with heart rate control. -Continue on metoprolol 50 mg twice daily, take this 12 hours apart -Started on Cardizem. First 2 doses of Cardizem will be 60mg every 6 hours. Take first dose on 09/20/19 at 6pm. Then take 2nd dose of cardizem 60mg at midnight. When you wake up on 09/21/19 take Cardizem CD 240mg and continue on this daily. -Atrial fibrillation can place you at increased risk of stroke, therefore a blood thinner was prescribed to help decrease this risk. The blood thinner that you are prescribed is Eliquis 5mg twice daily Please call your physician or present to the ED for any acute illness or concerns. Any chest pain or shortness of breath present to the ED. Please check your blood pressure and present a log to your PCP and monitor heart rate. If your heart rate is less than 60 please call your physician. Stop taking enalapril/HCTZ at this time. Discharge Attestations Time Spent in Discharge Care*: greater than 30 min Specific Discharge Activities: Specific discharge activities: educating patient and documenting/other paperwork Quality Metrics Clinical Quality Measures During this hospital stay, did patient experience: None Coding Level of Care Code Acute Fluid Power Mechanic for Ching Gonzales Diagnoses Atrial fibrillation with RVR I48.91 Hypertension I10 Diabetes mellitus E11.9
--- NOTE | 2019-09-20 16:37 | PC.NURSE ---
Discharge instructions given per the physician's order. Patient verbalized understanding of medication changes and when to appropriately take medications. Patient reports that she will set an alarm at home to ensure that she wakes up to take midnight dose of cardizem. Patient verbalized understanding of S&S of worsening condition and teaches back appropriate actions to take. IVs have been removed. Patient has dressed self and contacted grandson to pick her up. No further needs identified at this time.
--- NOTE | 2019-09-20 17:34 | USCV_ITS ---
PetraJaci doshi Age: 63 Gender: F : 1955 Exam Date: 09/20/2019 07:25 Ordering Phys: Lilibeth Villalpando DO Technologist: Camryn Brar Exam Location: [facility] [place] Indication: NEW ONSET AFIB BP: 114 / 69 HR: 102 Rhythm: Atrial fibrillation Technical Quality: Adequate MEASUREMENTS (Male / Female) Normal Values 2D ECHO LV Diastolic Diameter PLAX 5.4 cm 4.2 - 5.9 / 3.9 - 5.3 cm LV Systolic Diameter PLAX 4.7 cm LV Chamber Size 4.6 cm IVS Diastolic Thickness 1.6 cm 0.6 - 1.0 / 0.6 - 0.9 cm IVS Systolic Thickness 2.1 cm LVPW Diastolic Thickness 1.2 cm 0.6 - 1.0 / 0.6 - 0.9 cm LVPW Systolic Thickness 1.3 cm RV Chamber Size 3.9 cm LVOT Diameter 2.0 cm LV Ejection Fraction 2D Teich 28.1 % LV Ejection Fraction MOD 2C 54.4 % LV Ejection Fraction 2C AL 53.5 % LA Diameter 4.5 cm LA Width 4.5 cm LA Height 5.4 cm RA Width 4.1 cm RA Height 5.9 cm Aorta at Sinotubular Diameter 3.7 cm M-MODE LV Diastolic Diameter MM 4.9 cm 4.2 - 5.9 / 3.9 - 5.3 cm LV Systolic Diameter MM 3.6 cm LV Ejection Fraction MM Teich 53.4 % IVS Diastolic Thickness MM 1.6 cm 0.6 - 1.0 / 0.6 - 0.9 cm IVS Systolic Thickness MM 1.6 cm LVPW Diastolic Thickness MM 1.6 cm 0.6 - 1.0 / 0.6 - 0.9 cm LVPW Systolic Thickness MM 2.4 cm RV Diastolic Diameter MM 1.5 cm Aortic Annulus Diameter 2.9 cm LA Ao Ratio MM 1.5 MV E Point Septal Separation 0.6 cm DOPPLER AV Peak Velocity 239.0 cm/s LVOT Peak Velocity 69.0 cm/s AV Area Cont Eq vti 1.0 cm squared AV Area Cont Eq pk 0.9 cm squared MV Area PHT 2.7 cm squared MV E' Velocity 5.0 cm/s Mitral E to MV E' Ratio 18.9 Mitral E to LV E' Lateral Ratio 28.4 Mitral E to LV E' Septal Ratio 14.2 TR Peak Velocity 278.5 cm/s TR Peak Gradient 31.0 mmHg TR Mean Velocity 191.3 cm/s TR Mean Gradient 17.0 mmHg TR Velocity Time Integral 87.7 cm TV Peak E Velocity 90.0 cm/s Right Atrial Pressure 15.0 mmHg Pulmonary Artery Systolic Pressu 46.0 mmHg PV Peak Velocity 91.0 cm/s RV Acceleration Time 0.1 s RV Ejection Time 0.3 s RV AcT/ET 0.5 FINDINGS Left Ventricle Mildly increased left ventricular cavity size. Mild left ventricular hypertrophy. Normal left ventricular systolic function. Left ventricular ejection fraction is estimated at 55 %. Rhythm precludes evaluation of diastolic function. Right Ventricle Normal right ventricular size and systolic function. Mild pulmonary hypertension, RVSP 46 mmHg. Right Atrium Mildly increased right atrial size. Inferior vena cava does not collapse with respiration. Right atrial pressure 15 mmHg Left Atrium Moderately increased left atrial size. Mitral Valve Structurally normal mitral valve. Mild mitral valve regurgitation. Aortic Valve Structurally normal trileaflet aortic valve. Moderate aortic valve calcification. No aortic valve regurgitation. There is aortic valve stenosis. The severity is unclear. The measured gradient is only slightly above 12 mmHg which would put it in the mild to moderate range. The calculated valve area however is less than 1 cm squared. I would estimate that it is closer to moderate aortic stenosis. Visually the valve looks moderately stenosed. Tricuspid Valve Structurally normal tricuspid valve. Mild tricuspid valve regurgitation. Pulmonic Valve Pulmonic valve not well visualized. Pericardium Normal pericardium without effusion. Aorta Normal ascending aorta dimension. CONCLUSIONS Mildly increased left ventricular cavity size. Mild left ventricular hypertrophy. Normal left ventricular systolic function. Left ventricular ejection fraction is estimated at 55 %. Rhythm precludes evaluation of diastolic function. Normal right ventricular size and systolic function. Mild pulmonary hypertension, RVSP 46 mmHg. Mildly increased right atrial size. Inferior vena cava does not collapse with respiration. Right atrial pressure 15 mmHg. Moderately increased left atrial size. Structurally normal mitral valve. Mild mitral valve regurgitation. Structurally normal trileaflet aortic valve. Moderate aortic valve calcification. No aortic valve regurgitation. There is aortic valve stenosis. The severity is unclear. The measured gradient is only slightly above 12 mmHg which would put it in the mild to moderate range. The calculated valve area however is less than 1 cm squared. I would estimate that it is closer to moderate aortic stenosis. Visually the valve looks moderately stenosed. There are no prior echocardiogram studies to compare. Dr. Eugenio Aaron MD (Electronically Signed) Final Date: 20 September 2019 17:43 S
== END 2019-09-20 16:55 | disposition home or self-care (01) ==
LOC: ER 09:21 → CSU 16:52
PROVIDERS: Family Medicine; Admitting Provider Family Medicine; PCP Family Medicine; Visit Provider Family Medicine
DX: I48.91 Unspecified atrial fibrillation (principal); I10 Essential (primary) hypertension; E11.9 Type 2 diabetes mellitus without complications; Z79.01 Long term (current) use of anticoagulants; M17.11 Unilateral primary osteoarthritis, right knee; E11.40 Type 2 diabetes mellitus with diabetic neuropathy, unspecified; M17.0 Bilateral primary osteoarthritis of knee; E66.9 Obesity, unspecified; Z68.42 Body mass index [BMI] 45.0-49.9, adult; E86.0 Dehydration
CPT/HCPCS: 12345; 36415; 36416; 71045; 80048; 80053; 80061; 81003; 82962; 83735; 83880; 84100; 84443; 84484; 85025; 93005; 93306; 96365; 96366; 96372; 96375; 99284; 99285; G0378; J1650; J1815; J3490; J7030; J7040

== ENCOUNTER 2020-07-15 09:18 | Outpatient (CLI) | payer MEDICARE, SELFPAY ==
[2020-07-15 09:58] LABS: Blood Urea Nitrogen 14 mg/dL (8-23); Glomerular Filtration Rate 71.8 mL/min (90-130)
== END 2020-07-15 09:19 | disposition home or self-care (01) ==
PROVIDERS: PCP Nurse Practitioner Family; Visit Provider Nurse Practitioner Family
DX: R19.00 Intra-abdominal and pelvic swelling, mass and lump, unspecified site (principal)
CPT/HCPCS: 36415; 82565; 84520

== ENCOUNTER 2020-07-17 09:01 | Outpatient (CLI) | payer MEDICARE, SELFPAY ==
--- NOTE | 2020-07-17 09:13 | US_ITS ---
WS: [id number] Complete ABDOMINAL ULTRASOUND HISTORY: ABD SWELLING COMPARISON: None available. Liver: 17.0 cm in length. Liver is enlarged with severe hepatic steatosis. Coarse echotexture of the liver. Gallbladder: Gallbladder is normally distended with stones and sludge. No gallbladder wall thickening . Gallbladder wall thickness: 0.3 cm. Pancreas: Not visualized. CBD: 0.5 cm. Right kidney: 10.2 cm x 6.2 cm x 5.9 cm. No mass, cortical thickening or hydronephrosis. LEFT kidney and LEFT spleen are not imaged or visualized. Abdominal aorta and IVC are within normal limits. Large amount of ascites throughout all 4 quadrants. US/US abdomen complete* [id number] IMPRESSION: 1. Technically very limited evaluation of the abdominal structures. 2. Cholelithiasis and sludge. No bile duct dilatation. 3. Large amount of ascites. 4. LEFT kidney and LEFT spleen were not evaluated. 5. Hepatic steatosis and hepatomegaly.
== END 2020-07-17 09:02 | disposition home or self-care (01) ==
LOC: RAD 09:08
PROVIDERS: PCP Nurse Practitioner Family; Visit Provider Nurse Practitioner Family
DX: K80.20 Calculus of gallbladder without cholecystitis without obstruction (principal); R18.8 Other ascites; K76.0 Fatty (change of) liver, not elsewhere classified; R16.0 Hepatomegaly, not elsewhere classified
CPT/HCPCS: 76700

== ENCOUNTER → 2020-07-24 09:41 | Day surgery (SDC) | payer MEDICARE, SELFPAY ==
[2020-07-24 10:30] VITALS: BP 177/93; RESP 20; TEMP 36.6
[2020-07-24 10:30] LABS: INR 1.16 (0.8-1.2)
--- NOTE | 2020-07-24 10:33 | US_ITS ---
WS: [id number] ULTRASOUND-GUIDED PARACENTESIS CLINICAL INFORMATION: ascites COMPARISON: None. Procedure Informed consent: The risks, benefits, and alternatives of the procedure were discussed with the myrna ent. Verbal and written consent was obtained. Timeout: A timeout was performed to confirm the correct patient, procedure, and site. Preparation: A suitable skin site was identified. The patient was prepped and draped in usual sterile fashion. Lidocaine 1% was used for local anesthesia. Catheter: 4 British One-step Yueh catheter. Side: Right Lower quadrant. Fluid Volume: 12,000 ml Color: Clear yellow DISPOSITION: Discarded safely. Complications: None. Patient disposition: Discharged from the department in stable condition. US/US paracentesis abd w [id number] IMPRESSION: Uncomplicated ultrasound-guided paracentesis. Removal of 12,000 cc clear yellow ascites
[2020-07-24 10:43] VITALS: BP 130/88; PULSE 130; O2SAT 98
[2020-07-24 11:32] LABS: Color, Body Fluid PALE YELLOW
[2020-07-24 11:33] LABS: Apprearance, Body Fluid CLEAR; Body Fluid Polynuclear #Cells 0.105; Body Fluid Specific Gravity 1.015; Body Fluid WBC 462 /uL; Monocytes # Body Fluid 0.357
[2020-07-24 12:22] LABS: Albumin Body Fluid 2.5 g/dL; Fluid Alkaline Phos. 29 IU/L
[2020-07-24 12:23] LABS: Amylase Body Fluid 12 U/L; Cholesterol Body Fluid 117 mg/dL (0-200); Triglycerides Body Fluid 46 mg/dL (0-150); Uric Acid Body Fluid 8 mg/dL
[2020-07-24 12:24] LABS: PATH Referral YES; Total Protein Pleural Fluid 4.8 g/dL
[2020-07-24 12:40] VITALS: BP 144/87; PULSE 130; RESP 22
[2020-07-24 13:02] LABS: LDH Body Fluid 1261 U/L
--- NOTE | 2020-07-24 13:07 | PC.NURSE ---
1240 Paracentesis per radiologist with 12 L dark cailin fluid returned. Dr. Reynoso at bedside and notified of total fluid removed. Fluid sent to lab for analysis as ordered. Pt tolerated procedure well. VSS. Pt instructed to look for signs of bleeding or infection at RLQ puncture site. Dermabond with 2x2 and bandaid applied. Site without bleeding noted upon discharge. Pt states she can breathe much easier at this time.
== END ==
PROVIDERS: Radiology Neuroradiology; Surgery; PCP Nurse Practitioner Family; Visit Provider Internal Medicine
DX: R18.8 Other ascites (principal)
CPT/HCPCS: 36415; 49083; 80500; 82042; 82150; 82465; 82945; 83615; 83986; 84075; 84157; 84315; 84478; 84560; 85610; 87015; 87070; 87075; 87102; 87116; 87205; 87206; 87801; 88112; 88305; 89050

== ENCOUNTER 2020-07-31 20:28 | Inpatient (IN) | payer MEDICARE, SELFPAY ==
[2020-07-31 20:32] VITALS: BP 138/75; PULSE 163; RESP 26; TEMP 37.2; O2SAT 95; BMI 47.8
--- NOTE | 2020-07-31 20:45 | ECG_ITS ---
[facility] Test Date: 2020-07-31 Pat Name: Jaci Mejía Department: Room: 101 Gender: Female Methods Time Analyst: : 1955 Requested By: Hany Castro Order Number: [id number] Himanshu MD: Rajan Llanes M.D. Measurements Intervals [place] Rate: 157 P: DE: QRS: 95 QRSD: 94 T: -32 QT: 282 QTc: 457 Interpretive Statements ATRIAL FIBRILLATION WITH RAPID VENTRICULAR RESPONSE WITH ABERRANT CONDUCTION OR VENTRICULAR PREMATURE COMPLEXES BORDERLINE RIGHT AXIS DEVIATION [QRS AXIS > 90] PATTERN CONSISTENT WITH PULMONARY DISEASE ABNORMAL QRS-T ANGLE [QRS-T AXIS DIFFERENCE > 60] Compared to ECG 09/19/2019 15:38:56 Aberrant conduction of supraventricular beat(s) now present Ventricular premature complex(es) now present T-wave abnormality no longer present Electronically Signed On 08-01-2020 17:07:49 CDT by Raajn Llanes M.D. [id number]
--- NOTE | 2020-07-31 20:50 | XRR_ITS ---
PROCEDURE INFORMATION: Exam: XR Chest Exam date and time: 07/31/2020 8:50 PM Age: 64 years old Clinical indication: Injury or trauma; Blunt trauma (contusions or hematomas); Patient HX: Fall at home. History of afib. TECHNIQUE: Imaging protocol: XR of the chest. Views: 1 view. COMPARISON: CR XR chest 1V portable [id number] 09/19/2019 9:42 AM FINDINGS: Lungs: Bibasilar atelectasis versus infiltrate. Pleural spaces: Unremarkable. No pleural effusion. No pneumothorax. Heart/Mediastinum: Cardiomegaly and pulmonary vascular congestion. Bones/joints: Unremarkable. XR/XR chest 1V portable [id number] IMPRESSION: 1. Cardiomegaly and pulmonary vascular congestion. 2. Bibasilar atelectasis versus infiltrate.
--- NOTE | 2020-07-31 20:55 | XRR_ITS ---
PROCEDURE INFORMATION: Exam: XR Bilateral Hips Exam date and time: 07/31/2020 8:55 PM Age: 64 years old Clinical indication: Injury or trauma; Blunt trauma (contusions or hematomas); Bilateral; Patient HX: Fall at home. C/O hip pain. TECHNIQUE: Imaging protocol: XR bilateral hips. Views: 2 views of hips with pelvis when performed. COMPARISON: No relevant prior studies available. FINDINGS: Bones/joints: Unremarkable. No acute fracture. Soft tissues: Unremarkable. Vasculature: Scattered vascular calcifications. XR/XR hip BI 3-4V wo/w pel [id number] IMPRESSION: Negative for fracture or dislocation
[2020-07-31 21:02] LABS: Basophils % 0.2 %; Hematocrit 32.6 % (37.0-47.0); Hemoglobin 10.3 g/dL (11.5-15.3); Lymphocytes # 0.4 10^3/uL (0.8-4.8); Lymphocytes % 2.2 %; Mean Corpuscular HGB Conc 31.6 g/dL (30.0-36.0); Mean Corpuscular Hemoglobin 23.1 pg (28.0-34.0); Mean Corpuscular Volume 73.1 fL (81-99); Mean Platelet Volume 9.3 fL (7.4-10.4); Monocytes # 1.1 10^3/uL (0.2-0.9); Monocytes % 5.7 %; Neutrophils # 17.88 10^3/uL (1.8-7.7); Nucleated Red Blood Cells % 0 %; Platelet Count 893 10^3/cmm (130-400); Red Blood Count 4.46 10^6/uL (4.1-5.3); Red Cell Distribution Width 18.6 % (12.1-15.1); White Blood Count 19.6 10^3/uL (4.0-10.0)
[2020-07-31] MEDS: sodium chloride 0.9% 1,000 ML 999 ML IV (21:02)
[2020-07-31 21:05] VITALS: BP 162/68; PULSE 144; RESP 30; O2SAT 93
--- NOTE | 2020-07-31 21:10 | W.ED.FALL ---
HPI - Fall General: Chief Complaint: Fall Stated Complaint: FALL Time Seen by Provider: 07/31/20 20:51 Source: patient and EMS Mode of arrival: EMS Limitations: no limitations History of Present Illness: HPI Narrative: 64-year-old female who states she tripped over a rug while using her cane at home. She states she is unable to get up but she has difficulty getting around anyways. States that no one did came in she had laid on the floor for 22 hours before EMS was called and was able to get her off the ground. States she has some soreness in her hips but no severe pain. She denies hitting her head. States she is not taken any of her medicines and she does have a history of A. fib and her heart rate here is in the 160s. Associated symptoms-after fall: Denies abdominal pain or headache(s) Review of Systems Const: Denies: fever(s), chills, body aches or change in appetite Eyes: Denies: blurry vision or eye discomfort ENMT: Denies: throat pain or dental pain Card: Reports: palpitations Resp: Denies: dyspnea GI: Denies: abdominal pain, nausea, vomiting or diarrhea : Denies: dysuria Musc: Reports: joint pain Skin/Breast: Denies: rash Neuro: Denies: headache(s) Psych: Denies: depression Nic/Lymph: Denies: easy bruising All/Imm: Denies: urticaria PFSH ED PFSH: Medical History Atrial fibrillation BMI 45.0-49.9, adult Degenerative arthritis of right knee Diabetes mellitus Diabetic neuropathy Diastolic heart failure Essential hypertension Hypertension Osteoarthritis of knees, bilateral Osteoarthritis of left knee Surgical History History of breast biopsy History of colonoscopy History of D&C Family History Father Cancer Grandfather Cancer Grandmother Cancer Dementia Mother Dementia Denies family history of Diabetes CAD (coronary artery disease) Clotting disorder Hyperlipidemia Psychiatric illness Chronic kidney disease (CKD) Suicide Anesthesia complication Bleeding disorder Family history of premature coronary artery disease Lung disease Hypertension Stroke Social History Smoking and tobacco status: never smoked Second hand smoke exposure: No Alcohol intake: never Current occupational status: retired Physical Exam Const: COMMON NORMALS: no acute distress and patient oriented x3 NUTRITIONAL APPEARANCE: obese HENMT: COMMON NORMALS: normocephalic and atraumatic HEAD & SCALP: normocephalic and atraumatic Eye: COMMON NORMALS: Equal, round and reactive pupils present and EOMs intact bilaterally PUPIL: Yes Equal, round and reactive pupils present Neck/C-Spine: COMMON NORMALS: full ROM and supple Chest: COMMONS NORMALS: normal inspection of the chest and normal palpation of entire chest wall Resp: COMMON NORMALS: normal respiratory effort, No retractions, No use of accessory muscles and clear to auscultation bilaterally AUSCULTATION: clear to auscultation bilaterally Cardio: COMMON NORMALS: No murmurs present (Cardio) RATE: tachycardic RHYTHM: abnormal rhythm irregularly irregular GI: COMMON NORMALS: Normal to inspection, nondistended, normoactive bowel sounds present, Soft to palpation, non-tender and no masses PALPATION: Yes Soft to palpation Extremity: COMMON NORMALS: normal to inspection and full ROM Neuro: COMMON NORMALS: patient oriented x3, moves all extremities and no focal motor deficits Psych: COMMON NORMALS: mental status grossly normal, Normal thought process present and cooperative THOUGHT PROCESS: Normal thought process present Skin: COMMON NORMALS: no rashes or lesions noted and no wounds GENERAL SKIN EXAM: no rashes or lesions noted Course Vital Signs: Vital signs: Vital Signs Temperature 98.9 F 08/01/20 00:30 Pulse Rate 132 H 08/01/20 00:30 Respiratory Rate 30 H 08/01/20 00:30 Blood Pressure 151/77 08/01/20 00:30 Pulse Oximetry 92 08/01/20 00:30 MDM - Fall MDM Narrative: Medical decision making narrative: Jaci presents here with follow-up weakness. Patient is A. fib with RVR is currently on a Cardizem drip she is still tachycardic but heart rate is improving. We will give her metoprolol as well. I spoke to hospitalist will admit for her A. fib. Lab Data: Labs: Lab Results 07/31/20 07/31/20 07/31/20 Range/Units 20:48 20:48 20:48 WBC 19.6 H (4.0-10.0) 10^3/ uL RBC 4.46 (4.1-5.3) 10^6/u L Hgb 10.3 L (11.5-15.3) g/dL Hct 32.6 L (37.0-47.0) % MCV 73.1 L (81-99) fL MCH 23.1 L (28.0-34.0) pg MCHC 31.6 (30.0-36.0) g/dL RDW 18.6 H (12.1-15.1) % Plt Count 893 H (130-400) 10^3/c mm MPV 9.3 (7.4-10.4) fL Neut % (Auto) 91.0 % Lymph % (Auto) 2.2 % [place] % (Auto) 5.7 % Eos % (Auto) 0.0 % Baso % (Auto) 0.2 % Neut # (Auto) 17.88 H (1.8-7.7) 10^3/u L Lymph # (Auto) 0.4 L (0.8-4.8) 10^3/u L [place] # (Auto) 1.1 H (0.2-0.9) 10^3/u L Eos # (Auto) 0.0 (0.0-0.8) 10^3/u L Baso # (Auto) 0.0 (0.0-0.1) 10^3/u L Nucleated RBC % (a uto) 0 % Nucleated RBCs # 0.0 /100WBC PT 19.60 H (12.1-14.9) SECO NDS INR 1.61 H (0.8-1.2) Sodium 138 (136-145) mmol/L Potassium 4.1 (3.5-5.1) mmol/L Chloride 102 (98-107) mmol/L Carbon Dioxide 19 L (22-29) mmol/L Anion Gap 21.1 H (5-19) BUN 20 (8-23) mg/dL Creatinine 0.7 (0.5-0.9) mg/dL GFR Calculation 83.7 L (90-130) mL/min Glucose 165 H (65-115) mg/dL Calculated Osmolal ity 292 (285-295) mOsm/k g Lactate (0.5-2.2) mmol/L Calcium 8.6 (8.5-10.5) mg/dL Total Bilirubin 1.0 (0.15-1.2) mg/dL AST 21 (0-32) U/L ALT 17 (0-33) U/L Alkaline Phosphata se 170 H (35-105) IU/L Creatine Kinase 264 H (26-192) U/L Total Protein 6.6 (6.6-8.7) g/dL Albumin 2.9 L (3.5-5.2) g/dL Globulin 3.7 (1.3-4.6) g/dL Urine Color (Yellow) Urine Appearance (CLEAR) Urine pH (5-7) Ur Specific Gravit y (1.005-1.030) Urine Protein (Negative) Urine Glucose (UA) (Normal) Urine Ketones (Negative) Urine Blood (Negative) Urine Nitrate (Negative) Urine Bilirubin (Negative) Urine Urobilinogen (Negative) mg/dL Ur Leukocyte Sameera ase (Negative) Urine RBC (0-2) /hpf Urine WBC (0-5) /hpf Ur Squamous Epith Cells (0-5) /hpf Amorphous Sediment Urine Bacteria (NONE) /hpf 07/31/20 07/31/20 Range/Units 22:17 23:11 WBC (4.0-10.0) 10^3/ uL RBC (4.1-5.3) 10^6/u L Hgb (11.5-15.3) g/dL Hct (37.0-47.0) % MCV (81-99) fL MCH (28.0-34.0) pg MCHC (30.0-36.0) g/dL RDW (12.1-15.1) % Plt Count (130-400) 10^3/c mm MPV (7.4-10.4) fL Neut % (Auto) % Lymph % (Auto) % [place] % (Auto) % Eos % (Auto) % Baso % (Auto) % Neut # (Auto) (1.8-7.7) 10^3/u L Lymph # (Auto) (0.8-4.8) 10^3/u L [place] # (Auto) (0.2-0.9) 10^3/u L Eos # (Auto) (0.0-0.8) 10^3/u L Baso # (Auto) (0.0-0.1) 10^3/u L Nucleated RBC % (a uto) % Nucleated RBCs # /100WBC PT (12.1-14.9) SECO NDS INR (0.8-1.2) Sodium (136-145) mmol/L Potassium (3.5-5.1) mmol/L Chloride (98-107) mmol/L Carbon Dioxide (22-29) mmol/L Anion Gap (5-19) BUN (8-23) mg/dL Creatinine (0.5-0.9) mg/dL GFR Calculation (90-130) mL/min Glucose (65-115) mg/dL Calculated Osmolal ity (285-295) mOsm/k g Lactate 1.2 (0.5-2.2) mmol/L Calcium (8.5-10.5) mg/dL Total Bilirubin (0.15-1.2) mg/dL AST (0-32) U/L ALT (0-33) U/L Alkaline Phosphata se (35-105) IU/L Creatine Kinase (26-192) U/L Total Protein (6.6-8.7) g/dL Albumin (3.5-5.2) g/dL Globulin (1.3-4.6) g/dL Urine Color Dark yellow (Yellow) Urine Appearance Hazy A (CLEAR) Urine pH 5 (5-7) Ur Specific Gravit y 1.020 (1.005-1.030) Urine Protein Trace (Negative) Urine Glucose (UA) Norm (Normal) Urine Ketones 1+ H (Negative) Urine Blood 3+ H (Negative) Urine Nitrate Negative (Negative) Urine Bilirubin 1+ H (Negative) Urine Urobilinogen 1 H (Negative) mg/dL Ur Leukocyte Sameera ase 2+ H (Negative) Urine RBC 25-40 H (0-2) /hpf Urine WBC 15-25 H (0-5) /hpf Ur Squamous Epith Cells 15-25 H (0-5) /hpf Amorphous Sediment Not Reportable Urine Bacteria 2+ H (NONE) /hpf Imaging Data^: CXR: Radiologist's impression: [address] [address] XRay Report Signed Patient: Jaci Mejía Unit #: [id number] : 1955 Age/Sex: 64 / F ADM Date: 07/31/20 Loc: ER Room/Bed: Attending Dr: Ordering Provider/Ordering MD: Hany Castro MD Date of Service: 07/31/20 Procedure(s): XR chest 1V portable [id number] Accession Number(s): [id number] Report Number: [id number] PROCEDURE INFORMATION: Exam: XR Chest Exam date and time: 07/31/2020 8:50 PM Age: 64 years old Clinical indication: Injury or trauma; Blunt trauma (contusions or hematomas); Patient HX: Fall at home. History of afib. TECHNIQUE: Imaging protocol: XR of the chest. Views: 1 view. COMPARISON: CR XR chest 1V portable [id number] 09/19/2019 9:42 AM FINDINGS: Lungs: Bibasilar atelectasis versus infiltrate. Pleural spaces: Unremarkable. No pleural effusion. No pneumothorax. Heart/Mediastinum: Cardiomegaly and pulmonary vascular congestion. Bones/joints: Unremarkable. XR/XR chest 1V portable [id number] IMPRESSION: 1. Cardiomegaly and pulmonary vascular congestion. 2. Bibasilar atelectasis versus infiltrate. Xray Ortho: Radiologist's impression: [address] [address] XRay Report Signed Patient: Jaci Mejía Unit #: [id number] : 1955 Age/Sex: 64 / F ADM Date: 07/31/20 Loc: ER Room/Bed: Attending Dr: Ordering Provider/Ordering MD: Hany Castro MD Date of Service: 07/31/20 Procedure(s): XR hip BI 2V wo/w pel [id number] Accession Number(s): [id number] Report Number: [id number] PROCEDURE INFORMATION: Exam: XR Bilateral Hips Exam date and time: 07/31/2020 8:55 PM Age: 64 years old Clinical indication: Injury or trauma; Blunt trauma (contusions or hematomas); Bilateral; Patient HX: Fall at home. C/O hip pain. TECHNIQUE: Imaging protocol: XR bilateral hips. Views: 2 views of hips with pelvis when performed. COMPARISON: No relevant prior studies available. FINDINGS: Bones/joints: Unremarkable. No acute fracture. Soft tissues: Unremarkable. Vasculature: Scattered vascular calcifications. XR/XR hip BI 2V wo/w pel [id number] IMPRESSION: Negative for fracture or dislocation EKG Data^: EKG 1: Attestation: I personally reviewed and interpreted this EKG as follows: EKG interpretation date: 07/31/20 EKG interpretation time: 20:44 Interpretation: afib with rvr hr 157 qrs 94 qtc 370 Discharge Plan Discharge Admit Provider: Jeanette Rojo Coding Level of Care Code ED Porcelain Finish Sprayer for Chg Fwd Exam Comprehensive
[2020-07-31 21:23] LABS: Alanine Aminotransferase 17 U/L (0-33); Albumin Level 2.9 g/dL (3.5-5.2); Alkaline Phosphatase 170 IU/L (35-105); Anion Gap 21.1 (5-19); Aspartate Amino Transferase 21 U/L (0-32); Blood Urea Nitrogen 20 mg/dL (8-23); Calcium 8.6 mg/dL (8.5-10.5); Carbon Dioxide 19 mmol/L (22-29); Chloride 102 mmol/L (98-107); Creatine Phosphokinase 264 U/L (26-192); Globulin 3.7 g/dL (1.3-4.6); Glomerular Filtration Rate 83.7 mL/min (90-130); Glucose 165 mg/dL (65-115); Osmolality Calculated 292 mOsm/kg (285-295); Potassium 4.1 mmol/L (3.5-5.1); Sodium 138 mmol/L (136-145); Total Protein 6.6 g/dL (6.6-8.7)
[2020-07-31 21:42] LABS: INR 1.61 (0.8-1.2)
[2020-07-31 22:37] LABS: Add Urine Microscopic? YES; Bilirubin Urine 1+ (Negative); Blood Urine 3+ (Negative); Glucose Urine UA Norm (Normal); Ketones Urine 1+ (Negative); Leukocyte Esterase Urine 2+ (Negative); Nitrate Urine Negative (Negative); Protein Urine Trace (Negative); Urine Appearance Hazy (CLEAR); Urine Color Dark Yellow (Yellow); Urobilinogen Urine 1 mg/dL (Negative); pH Urine 5 (5-7)
[2020-07-31 22:38] LABS: Add Urine Culture? No; Bacteria Urine 2+ /hpf; RBC Urine 25-40 /hpf (0-2); Squamous Epithelial Cell Urine 15-25 /hpf (0-5); WBC Urine 15-25 /hpf (0-5)
[2020-07-31] MEDS: cefTRIAXone 1,000 MG in sodium chloride 0.9% (plus) 50 ML 100 MG IV (23:21)
[2020-07-31] MEDS: sodium chloride 0.9% 500 ML 999 ML IV (23:22)
[2020-07-31 23:38] LABS: Lactate (Lactic Acid level) 1.2 mmol/L (0.5-2.2)
[2020-08-01] VITALS (13 sets, daily range): BP systolic 106–151; BP diastolic 61–84; PULSE 109–146; RESP 24–36; TEMP 36.4–37.2; O2SAT 90–95
[2020-08-01] MEDS: metoprolol tartrate 25 mg Tablet PO (00:46)
--- NOTE | 2020-08-01 01:30 | PM.HP ---
Providers/Chief Complaint Admitting Physician: Jeanette Rojo MD Chief Complaint: FALL History of Present Illness Jaci Mejía is a 64 year old female who presented to the emergency room after her family found her at her home on the floor. Around 10 PM on Wednesday evening she had gotten up to go to bed. Walking to the bedroom she tripped over the couch a little bit. She landed on her knees and her left hip hit the couch. Denies hitting her head. She denies any preceding symptoms. No dizziness, no vision changes, no chest pain, no acute shortness of breath, no numbness, weakness, no loss of consciousness. She walks with a cane due to osteoarthritis in both of her legs and difficulty getting around. She was unable to get herself up off the floor because she is so weak. She is generally able to take care of her activities of daily living. She lives alone. She has been seeing several physicians and having several tests done recently which have revealed evidence of ascites. She had a paracentesis done for the first time on July 24. She had 12 L of fluid removed. It was sent for analysis and she reports some concern for malignancy. From what I can see 1 report suggest possibility of malignancy and another one demonstrated no evidence of malignant cells. She did not have laboratory studies done the same day as the paracentesis. Her fluid albumin was 2.5 with a total protein of 4.8. Differential did not reveal significant neutrophils. Fluid was clear. In talking with her she has been prescribed Lasix but only takes it if needed which is not that often. Her primary care provider recently added Aldactone on top of the Lasix I think not realizing that she was not taking Lasix regularly from her description. She was due to get an echocardiogram today and it was because of this and her family trying to reach her to confirm her appointment that she was ultimately found after being on the floor for about 24 hours. She did not have anything to eat or drink. She was unable to take any of her medications. EMS was called and brought her into the hospital. She was found to be in atrial fibrillation with rapid ventricular response. She has a known history of atrial fibrillation and is on chronic anticoagulation. CK level was 292. Creatinine was okay. She did have elevation in white blood count. Urinalysis was abnormal consistent with probable contaminated specimen. She received a dose of Rocephin empirically. She was given IV fluids and some diltiazem for which she was ultimately started on a Cardizem drip. Heart rate has continued to be in the 120s to 140s. She is being admitted for continued management and stabilization after her fall. She has been Dr. Reynoso who is in the process of setting her up for outpatient EGD and colonoscopy. There has been desire to get an outpatient CT but patient is unable to lie flat for such a procedure for quite some time. She does report diarrhea since she had the paracentesis. Multiple loose stools a day occasionally with some mild incontinence. No blood in her stools. She denies any difficulties with urination. Denies abdominal pain except some mild discomfort at the upper abdominal area with position changes. She thinks the fluid has started to reaccumulate. No reported fevers. No vomiting. Denies cough or upper respiratory symptoms. Reports recent development of discoloration on the fingertips ranging from purple to white to red particularly when her fingers are cold. Does not occur on her feet. Has chronic bilateral knee pain from arthritis and gets intermittent steroid injections through orthopedics clinic. No family history of liver disease. She follows with Dr. Hernandez from a cardiac standpoint. Review of Systems Const: Reports: change in weight (gain recently); Denies: fever(s), chills or change in appetite Eyes: Denies: change in vision ENMT: Denies: throat pain or nasal congestion Card: Reports: edema, dyspnea on exertion, orthopnea and acrocyanosis; Denies: chest pain, palpitations, lightheadedness, syncope or pre-syncope Resp: Reports: dyspnea; Denies: productive cough or non-productive cough GI: Reports: early satiety, diarrhea, bloating and other (increasing abdominal girth); Denies: abdominal pain, nausea, vomiting, constipation, hematochezia or melena : Denies: difficulty voiding or urinary frequency Musc: Reports: extremity pain (bilateral knees chronic, not worse) Skin/Breast: Reports: changes in skin color (hands primarily with cold - white, purple, red); Denies: rash, pruritus or sores Neuro: Reports: weakness in extremities (general not focal) and difficulty walking (thinking she needs walker rather than cane ); Denies: headache(s) or frequent falls Psych: Denies: anxiety or depression Nic/Lymph: Denies: easy bruising or easy bleeding Medications/Allergies Home Medications Medication Instructions Recorded Confirmed Last Taken Type Diabetic Shoes #1 each 07/25/19 07/24/20 Unknown Rx cholecalciferol (vitamin D3) 50 50 mcg PO DAILY 09/27/19 08/01/20 07/23/20 History mcg (2,000 unit) tablet glucosam 750 mg-chondroi 100 1 tab PO DAILY tab 09/27/19 08/01/20 07/23/20 History mg-hyalur 1.65 mg-CF borate 108 mg tablet multivitamin 1 tab PO DAILY 09/27/19 08/01/20 07/23/20 History apixaban 5 mg tablet 5 mg PO BID #60 tab 10/11/19 08/01/20 07/19/20 Rx diltiazem HCl 240 mg 240 mg PO DAILY #90 cap 04/05/20 08/01/20 07/23/20 Rx capsule,extended release 24 hr furosemide 40 mg tablet 40 mg PO DAILY PRN #90 tab 04/23/20 08/01/20 07/23/20 Rx gabapentin 300 mg capsule 300 mg PO TID cap 04/23/20 08/01/20 07/23/20 History potassium chloride 20 mEq 20 meq PO DAILY PRN #90 tab 04/23/20 08/01/20 07/23/20 Rx tablet,extended release Tracey Allergy 1 tab PO DAILY 08/01/20 08/01/20 Unknown History ferrous sulfate 325 mg PO DAILY 08/01/20 08/01/20 Unknown History metformin 500 mg PO DAILY 08/01/20 08/01/20 Unknown History metoprolol tartrate 50 mg PO BID 08/01/20 08/01/20 Unknown History spironolactone 25 mg PO QAM PRN 08/01/20 08/01/20 Unknown History Allergies Allergy/AdvReac Type Severity Reaction Status Date / Time No Known Allergies Allergy Verified 08/01/20 09:14 Additional Medication Information I personally reviewed home medication list and medications received day of admission thus far. PFSH Acute PFSH: Medical History (Updated 08/01/20 @ 09:09 by Jeanette Rojo MD) Aortic stenosis Atrial fibrillation BMI 45.0-49.9, adult Degenerative arthritis of right knee Diabetes mellitus Diabetic neuropathy Diastolic heart failure Essential hypertension Osteoarthritis of knees, bilateral Surgical History (Updated 08/01/20 @ 08:40 by Jeanette Rojo MD) History of breast biopsy History of cataract surgery History of colonoscopy History of D&C Status post abdominal paracentesis 07/2020 Family History Father Cancer Grandfather Cancer Grandmother Cancer Dementia Mother Dementia Denies family history of Diabetes CAD (coronary artery disease) Clotting disorder Hyperlipidemia Psychiatric illness Chronic kidney disease (CKD) Suicide Anesthesia complication Bleeding disorder Family history of premature coronary artery disease Lung disease Hypertension Stroke Social History (Updated 08/01/20 @ 08:55 by Jeanette Rojo MD) Smoking and tobacco status: never smoked Second hand smoke exposure: No Alcohol intake: never Substance/Drug Use: never Lives independently: Yes Household members: none Current occupational status: retired Vitals/I&O/Wt Last Vital Signs Temp 98.9 F 08/01/20 01:27 Pulse 136 H 08/01/20 01:27 Resp 29 H 08/01/20 01:27 BP 109/67 08/01/20 01:27 Pulse Ox 92 08/01/20 01:27 Weight last 48 hrs Weight 122.47 kg Physical Exam Narrative: EXAM NARRATIVE: Constitutional: Awake and alert, seen sitting on the side of the bed, has to lean back a little bit due to her abdominal girth HEENT: Pupils are equally reactive, nasopharynx clear, oropharynx clear with moist mucous membranes Neck: Supple Respiratory: Clear to auscultation anteriorly, decreased at both bases, no rales or wheezes Cardiovascular: Tachycardic irregular rhythm, holosystolic murmur right upper sternal border, Raynaud's phenomenon noted in both hands, mild cyanosis distal toes but not to the same degree, 1+ radial pulses, 1+ posterior tibialis pulses Abdomen: Significant abdominal girth, soft along the left-sided quadrants, some areas of irregular firmness and nodularity noted in the right sided quadrants, positive bowel sounds, nontender Extremities: 3+ edema, no pain with palpation of knees Skin: Chronic stasis changes, no large bruises noted although not currently able to evaluate posterior portions of upper leg Neuro: Speech clear, face symmetric, moves all extremities Psych: Normal affect Data : 08/01/20 04:15 08/01/20 04:15 Micro: Microbiology 07/31/20 23:11 Blood Culture - Preliminary Blood SPECIMEN COLLECTED 07/31/20 23:15 Blood Culture - Preliminary Blood SPECIMEN COLLECTED Other data: ECHO 08/2019 CONCLUSIONS Mildly increased left ventricular cavity size. Mild left ventricular hypertrophy. Normal left ventricular systolic function. Left ventricular ejection fraction is estimated at 55 %. Rhythm precludes evaluation of diastolic function. Normal right ventricular size and systolic function. Mild pulmonary hypertension, RVSP 46 mmHg. Mildly increased right atrial size. Inferior vena cava does not collapse with respiration. Right atrial pressure 15 mmHg. Moderately increased left atrial size. Structurally normal mitral valve. Mild mitral valve regurgitation. Structurally normal trileaflet aortic valve. Moderate aortic valve calcification. No aortic valve regurgitation. There is aortic valve stenosis. The severity is unclear. The measured gradient is only slightly above 12 mmHg which would put it in the mild to moderate range. The calculated valve area however is less than 1 cm squared. I would estimate that it is closer to moderate aortic stenosis. Visually the valve looks moderately stenosed. A&P Assessment and plan (1) Fall at home: Appears mechanical, no obvious acute injury Status: Acute Qualifiers: Encounter type: initial encounter Qualified Code(s): W19.XXXA - Unspecified fall, initial encounter; Y92.009 - Unspecified place in unspecified non-institutional (private) residence as the place of occurrence of the external cause (2) Atrial fibrillation with RVR: In a patient who had not had any of her rate controlling her other medications for the last 24 hours Status: Acute (3) Leukocytosis: Suspect reactive from acute events presently Status: Acute Qualifiers: Leukocytosis type: unspecified Qualified Code(s): D72.829 - Elevated white blood cell count, unspecified (4) Ascites: Reports longstanding abdominal girth but recent identification of significant ascites. Had 12 L of fluid removed on July 24. Is having some reaccumulation since then per her report. Clinically I think this may be related to heart failure and fatty liver Status: Acute Qualifiers: Ascites type: other type Qualified Code(s): R18.8 - Other ascites (5) Diastolic heart failure: Acute on chronic, this may be a primary contributor to development of ascites Status: Chronic Qualifiers: Heart failure chronicity: acute on chronic Qualified Code(s): I50.33 - Acute on chronic diastolic (congestive) heart failure (6) Anemia: Appears Stable Status: Chronic Qualifiers: Anemia type: iron deficiency Iron deficiency anemia type: unspecified iron deficiency Qualified Code(s): D50.9 - Iron deficiency anemia, unspecified (7) Aortic stenosis: As noted on last echocardiogram in August 2019 Status: Chronic Qualifiers: Cardiac valve disease etiology: etiology unspecified Qualified Code(s): I35.0 - Nonrheumatic aortic (valve) stenosis (8) Essential hypertension: Appears controlled Status: Chronic (9) Diabetes mellitus: Chronically on Metformin Status: Chronic Qualifiers: Diabetes mellitus type: type 2 Diabetes mellitus [facility] insulin use: without 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 Diabetes mellitus complication status: with neurologic complications Diabetes mellitus complication detail: with polyneuropathy Qualified Code(s): E11.42 - Type 2 diabetes mellitus with diabetic polyneuropathy (10) Raynauds phenomenon: Reports recent development Status: Acute (11) Osteoarthritis of knees, bilateral: Probable contributor to her fall Status: Chronic Qualifiers: Osteoarthritis type: primary Qualified Code(s): M17.0 - Bilateral primary osteoarthritis of knee (12) BMI 45.0-49.9, adult: Status: Chronic Additional A&P Information Diarrhea, could be secondary to constipation based on exam findings, Metformin, infection -difficult to get clear quantity currently Mild elevation in CK level, will need to monitor for rhabdomyolysis Observation admission Continue Cardizem drip We will provide short acting Cardizem this evening and transition to long-acting in the morning with weaning of drip as able Initiate oral and if necessary IV beta-blockade this evening with resumption of usual home metoprolol Received a couple of liters of IV fluids in the emergency room Given extent of ascites will hold on further fluids and plan to recheck CK level and renal function in the morning Will need some diuresis, if renal function remains stable overnight will administer in the morning with potassium placement Discussed with patient that she may need to take Lasix more regularly We will continue Rocephin empirically for now Blood cultures were collected in the emergency room Once heart rate stabilizes will have PT evaluate, may need a walker at home rather than just a cane Echocardiogram and heart rate improves Hold Metformin, sliding scale insulin currently for diabetes Continue gabapentin which patient is on at home Continue iron replacement Continue home Eliquis which provide appropriate DVT prophylaxis Recheck laboratory studies in the morning Monitor for worsening Raynaud's phenomenon Send stool for C. difficile Hold any antidiarrheal agent currently until we get a better idea of extent of problem Patient should maintain appointment for outpatient upper and lower endoscopy tentatively scheduled for August Monitor abdominal girth for rapidly reaccumulating fluid Plans, findings and concerns discussed with patient and she was given an opportunity to ask questions. Anticipated Disposition: Home, possibly with home health Code Status: Full code Attestations Medical Necessity Statement*: Currently anticipate a stay less than two midnights in a patient who was found on the floor after a fall in atrial fibrillation with rapid ventricular response. She has known atrial fibrillation and had not been able to take her medications for more than 24 hours. She does have some mild elevation in CK level but normal creatinine. She has comorbid conditions as documented and will be monitored overnight while we work to transition from Cardizem drip and IV fluids back to her home medications and stable vital signs. 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 Diagnoses Fall at home W19.XXXA; Y92.009 Encounter type: initial encounter Atrial fibrillation with RVR I48.91 Leukocytosis D72.829 Leukocytosis type: unspecified Ascites R18.8 Ascites type: other type Diastolic heart failure I50.33 Heart failure chronicity: acute on chronic Anemia D50.9 Anemia type: iron deficiency Iron deficiency anemia type: unspecified iron deficiency Aortic stenosis I35.0 Cardiac valve disease etiology: etiology unspecified Essential hypertension I10 Diabetes mellitus E11.42 Diabetes mellitus type: type 2 Diabetes mellitus [facility] insulin use: without [facility] use Diabetes mellitus complication status: with neurologic complications Diabetes mellitus complication detail: with polyneuropathy Raynauds phenomenon I73.00 Osteoarthritis of knees, bilateral M17.0 Osteoarthritis type: primary BMI 45.0-49.9, adult Z68.42
[2020-08-01] MEDS: pneumococcal (23 valent) SDV 0.5 mL IM (02:13)
[2020-08-01] MEDS: dilTIAZem 60 mg Tablet PO (03:44)
[2020-08-01 05:23] LABS: Basophils % 0.1 %; Hematocrit 29.6 % (37.0-47.0); Lymphocytes # 0.6 10^3/uL (0.8-4.8); Lymphocytes % 3.5 %; Mean Corpuscular HGB Conc 30.4 g/dL (30.0-36.0); Mean Corpuscular Hemoglobin 22.8 pg (28.0-34.0); Mean Corpuscular Volume 75.1 fL (81-99); Mean Platelet Volume 9.7 fL (7.4-10.4); Monocytes # 1.2 10^3/uL (0.2-0.9); Monocytes % 6.7 %; Neutrophils % 88.8 %; Nucleated Red Blood Cells % 0 %; Platelet Count 775 10^3/cmm (130-400); Red Blood Count 3.94 10^6/uL (4.1-5.3); Red Cell Distribution Width 18.4 % (12.1-15.1); White Blood Count 18.3 10^3/uL (4.0-10.0)
[2020-08-01 05:36] LABS: Blood Urea Nitrogen 19 mg/dL (8-23); Calcium 7.9 mg/dL (8.5-10.5); Carbon Dioxide 19 mmol/L (22-29); Chloride 103 mmol/L (98-107); Creatine Phosphokinase 258 U/L (26-192); Glucose 144 mg/dL (65-115); Osmolality Calculated 289 mOsm/kg (285-295); Sodium 137 mmol/L (136-145)
[2020-08-01 05:37] LABS: Anion Gap 19.3 (5-19); Potassium 4.3 mmol/L (3.5-5.1)
[2020-08-01 05:45] LABS: Estmated Average Glucose 134; Hemoglobin A1C 6.3 % (4.0-6.0)
[2020-08-01 06:43] LABS: Glucose Point of Care 133 mg/dL (70-110)
[2020-08-01] MEDS: metoprolol tartrate 1 mg/1 mL SDV 5 mL 5 MG IV (09:00)
[2020-08-01] MEDS: dilTIAZem ER (24HR) 240 mg Capsule PO (09:01)
[2020-08-01] MEDS: cholecalciferol (vitamin D3) 1,000 unit Tablet 2000 UNIT PO (09:01)
[2020-08-01] MEDS: apixaban 5 mg Tablet PO ×2 (09:01→21:00)
[2020-08-01] MEDS: ferrous sulfate EC 325 mg Tablet PO (09:02)
[2020-08-01] MEDS: gabapentin 100 mg Capsule 200 MG PO ×3 (09:03→21:00)
[2020-08-01] MEDS: metoprolol tartrate 50 mg Tablet PO ×2 (09:03→16:46)
--- NOTE | 2020-08-01 09:14 | PC.PHAR ---
PT STATES SHE TAKES CARE OF HER OWN MEDICATIONS-PT STATES SHE NEVER PICKED UP THE RYBELSUS 3MG DAILY FILLED ON 07/05/20 30D/S PT STATES IT WAS TO EXPENSIVE-EXT MED HISTORY SHOWS METFORMIN PLAIN 500MG BID FILLED ON 07/10/20 30D/ PT STATES SHE IS ONLY TAKING THE ER 500MG DAILY FILLED ON 07/03/20 90D/S-PT STATES SHE IS STILL TAKING FERROUS SULFATE 325MG DAILY EXT MED HISTORY SHOWS 325MG BID FILLED ON 07/27/20 90D/S PT STATES SHE HASNT INCREASED TO THAT DOSE YET-PT STATES SHE HAS BEEN TAKING SPIRONOLACTONE 25MG PRN FILLED ON 07/17/20 30D/S FILLED FOR 25MG DAILY NOT PRN
[2020-08-01] MEDS: FUROsemide 10 mg/mL SDV 4mL 40 MG IVP (10:46)
[2020-08-01] MEDS: potassium chloride ER 10 mEq Tablet PO (10:46)
--- NOTE | 2020-08-01 10:53 | PC.CHAP ---
Pastoral Care Encounter/Spiritual Assessment Type of Contact [] Declined workday director visit [] Patient/Family/Request visit [] Outpatient visit [x] Follow-up visit [] Physician referral [] Code/Alert [] Routine visit [] Staff referral [] Actively dying [] Patient sleeping [] Family support [] [] Out of room [] Palliative care [] [] Receiving care in room [] Pre-surgical visit [] Trauma [] Long length of stay [] ICU visit [] Other: Relational/Emotional Strength [] Patient feels connected with others/family/visitors/staff [] Distress [] Loneliness/isolation [] Abandonment Spirituality of Patient [] Person of Cathy [] Attends Scientology of their Cathy [] Believes in Prayer [] Reads Bible or Caodaism materials [] There are Spiritual issues to be addressed Billing Control Clerk Interventions [] Prayer [] Active listening [] Non-anxious presence [] Spiritual/emotional support [] Crisis/trauma care [] Spiritual counseling [] Bereavement support [] Provided bereavement packet [] Provided Bible/devotional materials [] Provided toy/stuffed animal, coloring book to patient or family member [] Provided Communion [] Anointing/[place] [] Salvation [] Completed spiritual assessment [] Other: Impact on Illness or Injury [] Angry [] Fearful [] Anxious [] Often cries [] Exhaustion [] Unable to work [] Unable to attend yazdanism [] Unable to walk/stand [] Unable to read [] Unable to drive [] Unable to eat/drink [] Unable to sleep [] Unable to be with family [] Patient intubated [] Other: Summary Follow-up visit Time spent with patient 5 mins
--- NOTE | 2020-08-01 10:55 | PC.CHAP ---
Pastoral Care Encounter/Spiritual Assessment Type of Contact [] Declined twist tester visit [] Patient/Family/Request visit [] Outpatient visit [] Follow-up visit [] Physician referral [] Code/Alert [x] Routine visit [] Staff referral [] Actively dying [] Patient sleeping [] Family support [] [] Out of room [] Palliative care [] [x] Receiving care in room [] Pre-surgical visit [] Trauma [x] Long length of stay [] ICU visit [] Other: Relational/Emotional Strength [] Patient feels connected with others/family/visitors/staff [x] Distress [] Loneliness/isolation [] Abandonment Spirituality of Patient [x] Person of Cathy [] Attends Mormonism of their Cathy [x] Believes in Prayer [] Reads Bible or Rastafarian materials [] There are Spiritual issues to be addressed Die Maker Apprentice Interventions [x] Prayer [x] Active listening [x] Non-anxious presence [x] Spiritual/emotional support [] Crisis/trauma care [x] Spiritual counseling [] Bereavement support [] Provided bereavement packet [] Provided Bible/devotional materials [] Provided toy/stuffed animal, coloring book to patient or family member [] Provided Communion [] Anointing/[place]by [] Salvation [x] Completed spiritual assessment [] Other: Impact on Illness or Injury [] Angry [x] Fearful [] Anxious [] Often cries [] Exhaustion [] Unable to work [] Unable to attend scientologist [] Unable to walk/stand [] Unable to read [] Unable to drive [] Unable to eat/drink [] Unable to sleep [] Unable to be with family [] Patient intubated [] Other: Summary she fell doesn't know about tests, waiting for doctors report, going home soon has a good attitude, feels good Time spent with patient 10 mins
[2020-08-01 11:23] LABS: Glucose Point of Care 226 mg/dL (70-110)
[2020-08-01 11:23] LABS: Glucose Point of Care 40 mg/dL (70-110)
[2020-08-01 16:42] LABS: Glucose Point of Care 160 mg/dL (70-110)
--- NOTE | 2020-08-01 18:21 | P.PN_ITS ---
Subjective Subjective: Interval history: Patient was complaining of increased abdominal distention Remain in atrial fibrillation with rapid ventricular response with 15 milligrams/hour Cardizem drip in addition to oral rate control medications. Denies chest pain. No respiratory distress. No fever, chills, nausea vomiting. Medications: Reviewed: Yes Vitals/I&O/Wt Last Vital Signs Temp 97.6 F 08/01/20 10:46 Pulse 122 H 08/01/20 16:01 Resp 36 H 08/01/20 16:01 BP 113/75 08/01/20 16:01 Pulse Ox 90 08/01/20 16:01 08/01/20 08/01/20 08/01/20 06:59 14:59 22:59 Intake Total 1694.5 / 1694.5 324.333 / 324.333 Balance 1694.5 / 1694.5 324.333 / 324.333 Weight last 48 hrs Weight 120.656 kg Weight 119.748 kg Weight 122.47 kg Physical Exam Narrative: EXAM NARRATIVE: Constitutional: Awake and alert, oriented x 3, No distess. HEENT: Pupils are equally reactive, nasopharynx clear, oropharynx clear with moist mucous membranes Neck: Supple Respiratory: Clear to auscultation anteriorly, decreased at both bases, no rales or wheezes Cardiovascular: Tachycardic irregular rhythm, holosystolic murmur right upper sternal border Abdomen: Significant abdominal girth, positive fluid wave, ascietes, soft along the left-sided quadrants, some areas of irregular firmness and nodularity noted in the right sided quadrants, positive bowel sounds, nontender Extremities: 3+ edema, no pain with palpation of knees Skin: Chronic stasis changes, no large bruises noted although not currently able to evaluate posterior portions of upper leg Neuro: Speech clear, face symmetric, moves all extremities Psych: Normal affect Data : 08/01/20 04:15 08/01/20 04:15 Micro: Microbiology 07/31/20 23:11 Blood Culture - Preliminary Blood SPECIMEN COLLECTED 07/31/20 23:15 Blood Culture - Preliminary Blood SPECIMEN COLLECTED A&P Assessment and plan (1) Fall at home: Appears mechanical, no obvious acute injury Status: Acute Qualifiers: Encounter type: initial encounter Qualified Code(s): W19.XXXA - Unspecified fall, initial encounter; Y92.009 - Unspecified place in unspecified non-institutional (private) residence as the place of occurrence of the external cause (2) Atrial fibrillation with RVR: Cardizem ggt continue to titrate to keep HR < 110 Cardizem 260 mg PO daily Metoprlol increased to 75 mg PO BID Eliquis 5 mg PO BID Lopressor 5 mg IV PRN Will likely need cardiology consult Status: Acute (3) Leukocytosis: Monitor for infectious process Repeat CBC in am Procal in am Follow up on culture Cdiff sent - pending Status: Acute Qualifiers: Leukocytosis type: unspecified Qualified Code(s): D72.829 - Elevated white blood cell count, unspecified (4) Ascites: Recent LV paracentesis May consider repeat paracentesis if worsening Status: Acute Qualifiers: Ascites type: other type Qualified Code(s): R18.8 - Other ascites (5) Diastolic heart failure: Acute on chronic, this may be a primary contributor to development of ascites Status: Chronic Qualifiers: Heart failure chronicity: acute on chronic Qualified Code(s): I50.33 - Acute on chronic diastolic (congestive) heart failure (6) Anemia: Appears Stable Status: Chronic Qualifiers: Anemia type: iron deficiency Iron deficiency anemia type: unspecified iron deficiency Qualified Code(s): D50.9 - Iron deficiency anemia, unspecified (7) Aortic stenosis: As noted on last echocardiogram in August 2019 Status: Chronic Qualifiers: Cardiac valve disease etiology: etiology unspecified Qualified Code(s): I35.0 - Nonrheumatic aortic (valve) stenosis (8) Essential hypertension: Appears controlled Status: Chronic (9) Diabetes mellitus: Chronically on Metformin Status: Chronic Qualifiers: Diabetes mellitus type: type 2 Diabetes mellitus assisted insulin use: without terminal worker use Diabetes mellitus complication status: with neurologic complications Diabetes mellitus complication detail: with polyneuropathy Qualified Code(s): E11.42 - Type 2 diabetes mellitus with diabetic polyneuropathy (10) Raynauds phenomenon: Reports recent development Status: Acute (11) Osteoarthritis of knees, bilateral: Probable contributor to her fall Status: Chronic Qualifiers: Osteoarthritis type: primary Qualified Code(s): M17.0 - Bilateral primary osteoarthritis of knee (12) BMI 45.0-49.9, adult: Status: Chronic Additional A&P Information Continue current management as ordered above Anticipated Disposition: Home, possibly with home health Code Status: Full code Attestations Medical Necessity Statement*: will require further hospitalization for management of atrial fibrillation with rapid ventricular response requiring IV Cardizem drip in addition to worsening abdominal ascites Time Spent in Patient Care: Greater than 35 minutes (>than 50% of time spent in counselling and/or direct pt care on unit) . Coding Level of Care Code Acute Early Intervention Specialist for Chg Fwd Diagnoses Fall at home W19.XXXA; Y92.009 Encounter type: initial encounter Atrial fibrillation with RVR I48.91 Leukocytosis D72.829 Leukocytosis type: unspecified Ascites R18.8 Ascites type: other type Diastolic heart failure I50.33 Heart failure chronicity: acute on chronic Anemia D50.9 Anemia type: iron deficiency Iron deficiency anemia type: unspecified iron deficiency Aortic stenosis I35.0 Cardiac valve disease etiology: etiology unspecified Essential hypertension I10 Diabetes mellitus E11.42 Diabetes mellitus type: type 2 Diabetes mellitus terminal worker insulin use: without terminal worker use Diabetes mellitus complication status: with neurologic complications Diabetes mellitus complication detail: with polyneuropathy Raynauds phenomenon I73.00 Osteoarthritis of knees, bilateral M17.0 Osteoarthritis type: primary BMI 45.0-49.9, adult Z68.42
[2020-08-01 20:16] LABS: Glucose Point of Care 142 mg/dL (70-110)
[2020-08-01] MEDS: cefTRIAXone 1,000 MG in sodium chloride 0.9% (plus) 50 ML 100 MG IV (23:19)
[2020-08-02] VITALS (8 sets, daily range): BP systolic 98–145; BP diastolic 64–76; PULSE 72–124; RESP 19–29; TEMP 36.6–36.8; O2SAT 88–93
--- NOTE | 2020-08-02 06:00 | USCV_ITS ---
Jaci Mejía Age: 64 Gender: F : 1955 Exam Date: 08/02/2020 15:58 Ordering Phys: Jeanette Rojo MD Technologist: Kari Tuttle [place] [facility] [place] Indication: A. fib, with RVR, , CHF BP: 128 / 86 HR: 108 Rhythm: Sinus Technical Quality: Adequate MEASUREMENTS (Male / Female) Normal Values 2D ECHO LV Diastolic Diameter PLAX 5.3 cm 4.2 - 5.9 / 3.9 - 5.3 cm LV Systolic Diameter PLAX 3.3 cm IVS Diastolic Thickness 1.5 cm 0.6 - 1.0 / 0.6 - 0.9 cm IVS Systolic Thickness 1.7 cm LVPW Diastolic Thickness 1.2 cm 0.6 - 1.0 / 0.6 - 0.9 cm LVPW Systolic Thickness 2.0 cm LV Ejection Fraction 2D Teich 66.9 % LV Ejection Fraction MOD 2C 86.1 % LV Ejection Fraction 2C AL 86.1 % LA Diameter 4.4 cm LA Width 4.5 cm LA Height 7.0 cm RA Width 4.9 cm RA Height 6.5 cm Aorta at Sinotubular Diameter 3.1 cm M-MODE LV Diastolic Diameter MM 5.1 cm 4.2 - 5.9 / 3.9 - 5.3 cm LV Systolic Diameter MM 3.4 cm LV Ejection Fraction MM Teich 61.7 % IVS Diastolic Thickness MM 1.4 cm 0.6 - 1.0 / 0.6 - 0.9 cm IVS Systolic Thickness MM 1.8 cm LVPW Diastolic Thickness MM 1.0 cm 0.6 - 1.0 / 0.6 - 0.9 cm LVPW Systolic Thickness MM 1.7 cm Aortic Annulus Diameter 2.2 cm LA Ao Ratio MM 2.0 MV E Point Septal Separation 0.5 cm DOPPLER AV Peak Velocity 270.5 cm/s LVOT Peak Velocity 119.0 cm/s MV Peak Velocity 165.0 cm/s MV Area PHT 4.6 cm squared Mitral E to A Ratio 1.6 MV E' Velocity 85.5 cm/s Mitral E to MV E' Ratio 24.3 Mitral E to LV E' Lateral Ratio 26.3 Mitral E to LV E' Septal Ratio 22.7 TR Peak Velocity 286.4 cm/s TR Peak Gradient 32.8 mmHg TR Mean Velocity 232.3 cm/s TR Mean Gradient 23.4 mmHg TR Velocity Time Integral 63.9 cm Right Atrial Pressure 3.0 mmHg Pulmonary Artery Systolic Pressu 35.8 mmHg PV Peak Velocity 131.0 cm/s RV Acceleration Time 0.1 s RV Ejection Time 0.3 s RV AcT/ET 0.3 FINDINGS Left Ventricle Normal left ventricular cavity size. Increased left ventricular wall thickness. Moderate left ventricular hypertrophy. Normal left ventricular systolic function. Left ventricular ejection fraction is estimated at 65-70 %. No regional wall motion abnormalities. Rhythm precludes evaluation of diastolic function. Abnormal septal motion consistent with conduction abnormality. Right Ventricle Normal right ventricular size and systolic function. Right ventricular systolic pressure 35.8 mmHg. Right Atrium Mildly increased right atrial size. Left Atrium Moderately increased left atrial size. Mitral Valve Severe mitral annular calcification. Moderately thickened mitral valve. No mitral valve stenosis. Mild-moderate mitral valve regurgitation. Aortic Valve Markedly thickened and calcified aortic valve. Moderate aortic valve stenosis, peak velocity of 2.8 m/sec, peak gradient of 31 mm Hg, mean gradient 18 mmHg, CHANDRA 1.2 cm squared. Dimensionless valve index of 0.43. Visually appears to be severely stenotic. Mild aortic valve regurgitation. Tricuspid Valve Structurally normal tricuspid valve. No tricuspid valve stenosis. Mild tricuspid valve regurgitation. Pulmonic Valve Pulmonic valve not well visualized. Trace pulmonary valve regurgitation. Pericardium No pericardial effusion. Aorta Normal sized aortic root. Mildly dilated ascending aorta measured at 35 mm. CONCLUSIONS 1. Normal left ventricular cavity size. Moderate concentric left ventricular hypertrophy. Normal left ventricular systolic function. Left ventricular ejection fraction is estimated at 65- 70 %. No regional wall motion abnormalities. 2. Pulmonary artery pressure estimated at 36 mm Hg. 3. Markedly thickened and calcified aortic valve. Moderate aortic valve stenosis, peak velocity of 2.8 m/sec, peak gradient of 31 mm Hg, mean gradient 18 mmHg, CHANDRA 1.2 cm squared. Dimensionless valve index of 0.43. Mild aortic valve regurgitation. 4. Severe mitral annular calcification. Moderately thickened mitral valve. Mild-moderate mitral valve regurgitation. 5. There may not be any significant change when compared to prior study. Jesica Hackett MD (Electronically Signed) Final Date: 02 August 2020 19:08 S
[2020-08-02 06:57] LABS: Glucose Point of Care 53 mg/dL (70-110)
[2020-08-02 07:47] LABS: Glucose Point of Care 201 mg/dL (70-110)
[2020-08-02] MEDS: cholecalciferol (vitamin D3) 1,000 unit Tablet 2000 UNIT PO (08:38)
[2020-08-02] MEDS: dilTIAZem ER (24HR) 240 mg Capsule PO (08:39)
[2020-08-02] MEDS: metoprolol tartrate 50 mg Tablet 75 MG PO ×2 (08:39→17:17)
[2020-08-02] MEDS: ferrous sulfate EC 325 mg Tablet PO (08:39)
[2020-08-02] MEDS: gabapentin 100 mg Capsule 200 MG PO ×3 (08:40→21:57)
[2020-08-02] MEDS: apixaban 5 mg Tablet PO (08:40)
[2020-08-02 11:17] LABS: Glucose Point of Care 76 mg/dL (70-110)
--- NOTE | 2020-08-02 12:44 | P.PN_ITS ---
Subjective Subjective: Interval history: Patient was complaining of increasing abdominal distention. Feeling uncomfortable. Remained in atrial fibrillation with rvr however this was improved. No fever, chills, nausea or vomiting. denied chest pain Medications: Reviewed: Yes Vitals/I&O/Wt Last Vital Signs Temp 98.2 F 08/02/20 08:00 Pulse 120 H 08/02/20 08:00 Resp 27 H 08/02/20 08:00 BP 114/76 08/02/20 08:00 Pulse Ox 93 08/02/20 08:00 08/01/20 08/02/20 08/02/20 22:59 06:59 14:59 Intake Total 424.333 / 424.333 137.833 / 562.166 365 / 365 Balance 424.333 / 424.333 137.833 / 562.166 365 / 365 Weight last 48 hrs Weight 121.608 kg Weight 120.656 kg Weight 119.748 kg Weight 122.47 kg Physical Exam Narrative: EXAM NARRATIVE: Constitutional: Awake and alert, oriented x 3, No distess. HEENT: Pupils are equally reactive, nasopharynx clear, oropharynx clear with moist mucous membranes Neck: Supple Respiratory: Clear to auscultation anteriorly, decreased at both bases, no rales or wheezes Cardiovascular: Tachycardic irregular rhythm, holosystolic murmur right upper sternal border Abdomen: Significant abdominal girth, positive fluid wave, ascietes, soft along the left-sided quadrants, some areas of irregular firmness and nodularity noted in the right sided quadrants, positive bowel sounds, nontender Extremities: 3+ edema, no pain with palpation of knees Skin: Chronic stasis changes, no large bruises noted although not currently able to evaluate posterior portions of upper leg Neuro: Speech clear, face symmetric, moves all extremities Psych: Normal affect Data : 08/01/20 04:15 08/01/20 04:15 Micro: Microbiology 07/31/20 23:15 Blood Culture - Preliminary Blood NEGATIVE TO DATE 07/31/20 23:11 Blood Culture - Preliminary Blood NEGATIVE TO DATE A&P Assessment and plan (1) Fall at home: Appears mechanical, no obvious acute injury Status: Acute Qualifiers: Encounter type: initial encounter Qualified Code(s): W19.XXXA - Unspecified fall, initial encounter; Y92.009 - Unspecified place in unspecified non-institutional (private) residence as the place of occurrence of the external cause (2) Atrial fibrillation with RVR: Cardizem ggt continue to titrate to keep HR < 110 Cardizem 260 mg PO daily - Increased to 300 daily Metoprlol increased to 75 mg PO BID Eliquis 5 mg PO BID - Hold due to procedure Lopressor 5 mg IV PRN Will consult cardiology Wean Cardizem drip Status: Acute (3) Leukocytosis: Monitor for infectious process - possibly due to SBP Increase rocephin to 2g IV daily Follow up on culture Cdiff sent - pending Status: Acute Qualifiers: Leukocytosis type: unspecified Qualified Code(s): D72.829 - Elevated white blood cell count, unspecified (4) Ascites: Recent LV paracentesis 12L Hold eliquis Repeat paracentesis ordered Lasix Status: Acute Qualifiers: Ascites type: other type Qualified Code(s): R18.8 - Other ascites (5) Diastolic heart failure: Acute on chronic, this may be a primary contributor to development of ascites Lasix 40 mg IV daily added Replace K as needed. Status: Chronic Qualifiers: Heart failure chronicity: acute on chronic Qualified Code(s): I50.33 - Acute on chronic diastolic (congestive) heart failure (6) Anemia: Appears Stable Status: Chronic Qualifiers: Anemia type: iron deficiency Iron deficiency anemia type: unspecified iron deficiency Qualified Code(s): D50.9 - Iron deficiency anemia, unspecified (7) Aortic stenosis: As noted on last echocardiogram in August 2019 Will avoid sig preload reduction Status: Chronic Qualifiers: Cardiac valve disease etiology: etiology unspecified Qualified Code(s): I35.0 - Nonrheumatic aortic (valve) stenosis (8) Essential hypertension: Appears controlled Status: Chronic (9) Diabetes mellitus: Chronically on Metformin On sliding scale insulin inpatient Status: Chronic Qualifiers: Diabetes mellitus type: type 2 Diabetes mellitus termite exterminator helper insulin use: without termite exterminator helper use Diabetes mellitus complication status: with neurologic complications Diabetes mellitus complication detail: with polyneuropathy Qualified Code(s): E11.42 - Type 2 diabetes mellitus with diabetic polyneuropathy (10) Raynauds phenomenon: Reports recent development Status: Acute (11) Osteoarthritis of knees, bilateral: Probable contributor to her fall Status: Chronic Qualifiers: Osteoarthritis type: primary Qualified Code(s): M17.0 - Bilateral primary osteoarthritis of knee (12) BMI 45.0-49.9, adult: Status: Chronic Additional A&P Information Continue current management as ordered above Anticipated Disposition: Home, possibly with home health vs SNF - d Code Status: Full code Attestations Medical Necessity Statement*: Will require further hospitalization for mangement of atrial fibrillation , fluid overload and posisble infection Time Spent in Patient Care: Greater than 35 minutes (>than 50% of time spent in counselling and/or direct pt care on unit) . Coding Level of Care Code Acute Pattern Illustrator for Chg Fwd Diagnoses Fall at home W19.XXXA; Y92.009 Encounter type: initial encounter Atrial fibrillation with RVR I48.91 Leukocytosis D72.829 Leukocytosis type: unspecified Ascites R18.8 Ascites type: other type Diastolic heart failure I50.33 Heart failure chronicity: acute on chronic Anemia D50.9 Anemia type: iron deficiency Iron deficiency anemia type: unspecified iron deficiency Aortic stenosis I35.0 Cardiac valve disease etiology: etiology unspecified Essential hypertension I10 Diabetes mellitus E11.42 Diabetes mellitus type: type 2 Diabetes mellitus termite exterminator helper insulin use: without termite exterminator helper use Diabetes mellitus complication status: with neurologic complications Diabetes mellitus complication detail: with polyneuropathy Raynauds phenomenon I73.00 Osteoarthritis of knees, bilateral M17.0 Osteoarthritis type: primary BMI 45.0-49.9, adult Z68.42
[2020-08-02 13:27] LABS: Basophils % 0.1 %; Eosinophils % 0.2 %; Hematocrit 29.6 % (37.0-47.0); Hemoglobin 8.8 g/dL (11.5-15.3); Lymphocytes # 0.5 10^3/uL (0.8-4.8); Lymphocytes % 3.1 %; Mean Corpuscular HGB Conc 29.7 g/dL (30.0-36.0); Mean Corpuscular Hemoglobin 22.7 pg (28.0-34.0); Mean Corpuscular Volume 76.3 fL (81-99); Mean Platelet Volume 9.5 fL (7.4-10.4); Monocytes # 1.1 10^3/uL (0.2-0.9); Monocytes % 6.5 %; Neutrophils # 15.27 10^3/uL (1.8-7.7); Neutrophils % 88.8 %; Nucleated Red Blood Cells % 0 %; Platelet Count 809 10^3/cmm (130-400); Red Blood Count 3.88 10^6/uL (4.1-5.3); White Blood Count 17.2 10^3/uL (4.0-10.0)
[2020-08-02] MEDS: FUROsemide 10 mg/mL SDV 4mL 40 MG IVP (13:43)
[2020-08-02] MEDS: cefTRIAXone 2,000 MG in sodium chloride 0.9% (plus) 50 ML 100 MG IV (13:46)
[2020-08-02 13:51] LABS: Alanine Aminotransferase 23 U/L (0-33); Albumin Level 2.5 g/dL (3.5-5.2); Alkaline Phosphatase 131 IU/L (35-105); Anion Gap 6.4 (5-19); Aspartate Amino Transferase 25 U/L (0-32); Blood Urea Nitrogen 26 mg/dL (8-23); Calcium 8.1 mg/dL (8.5-10.5); Carbon Dioxide 30 mmol/L (22-29); Chloride 101 mmol/L (98-107); Globulin 3.3 g/dL (1.3-4.6); Glomerular Filtration Rate 62.6 mL/min (90-130); Glucose 267 mg/dL (65-115); Osmolality Calculated 290 mOsm/kg (285-295); Potassium 4.4 mmol/L (3.5-5.1); Sodium 133 mmol/L (136-145); Total Bilirubin 0.4 mg/dL (0.15-1.2); Total Protein 5.8 g/dL (6.6-8.7)
--- NOTE | 2020-08-02 16:33 | USR_ITS ---
PROCEDURE INFORMATION: Exam: US Duplex Left Upper Extremity Veins, Limited Exam date and time: 08/02/2020 4:33 PM Age: 64 years old Clinical indication: Edema, localized; Upper extremity, left; Patient HX: Patient has been on eloquist for past 1 year; Additional info: Swelling of left upper arm TECHNIQUE: Imaging protocol: Real-time Duplex ultrasound of the Left Upper Extremity with 2-D andrew scale, color Doppler flow and spectral waveform analysis with image documentation. Limited exam focused on the left upper extremity veins. Total images: 1629 COMPARISON: No relevant prior studies available. FINDINGS: Left deep veins: Nonocclusive subacute thrombus left subclavian vein. Subacute occlusive deep venous thrombosis left axillary vein. Occlusive subacute to late subacute occlusive thrombus left brachial vein. Left superficial veins: Unremarkable. Visualized cephalic and basilic veins are patent without thrombus. Soft tissues: Unremarkable. US/[place] [id number] IMPRESSION: Positive for deep venous thrombosis as detailed in text.
[2020-08-02 16:59] LABS: Glucose Point of Care 73 mg/dL (70-110)
[2020-08-02] MEDS: heparin drip 25,000 UNIT/500 ML PREMIX 35 UNIT IV ×2 (19:08→20:34)
--- NOTE | 2020-08-02 20:13 | PC.NURSE ---
dr browne notified of swelling noted in left upper arm at approx 1600.pt states she has had swelling there for months.ultrasound obtained...and report reveals a large blood clot.dr browne ordered a heparin drip at 1830.attempt to start iv in left arm.unsuccessful.2nd nurse to try to gain access.
[2020-08-02 20:17] LABS: Glucose Point of Care 242 mg/dL (70-110)
[2020-08-02] MEDS: heparin 5,000 unit/mL INJ 1 mL IV (20:24)
[2020-08-03] VITALS (10 sets, daily range): BP systolic 87–133; BP diastolic 54–85; PULSE 86–116; RESP 17–25; TEMP 36.4–36.8; O2SAT 91–100
[2020-08-03 03:08] LABS: Partial Thromboplastin Time 62.3 SECONDS (23.9-36.7)
[2020-08-03 06:53] LABS: Glucose Point of Care 152 mg/dL (70-110)
--- NOTE | 2020-08-03 07:36 | PC.OT ---
Occupational therapy evaluation held, due to administration of heparin, discussed with nursing. Will attempt tomorrow.
[2020-08-03] MEDS: metoprolol tartrate 50 mg Tablet 75 MG PO ×2 (09:05→17:18)
[2020-08-03] MEDS: cholecalciferol (vitamin D3) 1,000 unit Tablet 2000 UNIT PO (09:06)
[2020-08-03] MEDS: gabapentin 100 mg Capsule 200 MG PO ×3 (09:06→20:29)
[2020-08-03] MEDS: dilTIAZem ER (24HR) 300 mg Capsule PO (09:07)
[2020-08-03] MEDS: ferrous sulfate EC 325 mg Tablet PO (09:07)
[2020-08-03 10:12] LABS: Partial Thromboplastin Time 48.4 SECONDS (23.9-36.7)
[2020-08-03] MEDS: heparin 5,000 unit/mL INJ 1 mL IV (10:21)
[2020-08-03] MEDS: heparin drip 25,000 UNIT/500 ML PREMIX 36 UNIT IV ×2 (10:25→23:21)
--- NOTE | 2020-08-03 10:40 | PC.NURSE ---
Dr Fisher at bedside for assessment and discussion of plan of care verbal instructions to give a one time dose of 40mg lasix LVP now and another 40mg IVp lasix 7 hours after this one time does then start 08/04/20 lasix 40 mg IVP at 06,1400
[2020-08-03] MEDS: FUROsemide 10 mg/mL SDV 4mL 40 MG IVP ×2 (10:50→18:20)
[2020-08-03 11:08] LABS: Glucose Point of Care 120 mg/dL (70-110)
[2020-08-03] MEDS: cefTRIAXone 2,000 MG in sodium chloride 0.9% (plus) 50 ML 100 MG IV (15:18)
[2020-08-03 16:47] LABS: Partial Thromboplastin Time 51.4 SECONDS (23.9-36.7)
--- NOTE | 2020-08-03 17:03 | PC.NURSE ---
Heparin GTT Dr Fisher notified that patient heparin GTT is running at 1900units/hr for the past 6 hours patient continues to not be in therapeutic range instructions from Dr Fisher to decrease rate to max dose of 1800 unit/hr and monitor
--- NOTE | 2020-08-03 18:13 | P.PN_ITS ---
Subjective Subjective: Interval history: 64 year old female with past medical history of morbid obesity, osteoarthritis, diabetes mellitus, neuropathy, hypertension, chronic diastolic heart failure who was recently seen by general surgery for abdominal distention due to increasing abdominal ascites req paracentesis ( 12L ) on 07/24 presented to the hospital with fall on 07/30. She was not able to get herself up laying on the floor for > 24hr. Denied any LOC, or head trauma. Upon arrival to ER initial labs showed WBC of 19.6, hemoglobin of 10.3, hematocrit of 32.6, platelet count of 893. INR of 1.61. Sodium of 138, potassium of 4.1, chloride of 102, bicarb of 19, BUN of 20 and a creatinine of 0.7. AST of 170 , ALT of 264, ALP 170. CK of 264. UA showed neg nitrates, 2+ leukocyte esterase, 15-25 wbc, 2+ bacteria. Chest x-ray showed cardiomegaly and pulmonary vascular congestion with bibasilar atelectasis vs infiltrates. Hip x-ray - neg. Echocardiogram showed EF of 65-70%, no regional wall motion abnormality, moderate aortic valve stenosis, mild to moderate MR. Patient was found to have atrial fibrillation with rapid ventricular response. Apparently patient had not taken any of her medications. Started on Cardizem gtt in additional to home rate control medication, also started on Rocephin 1g IV daily. Hospitalization was complicated with progressively increasing abdominal ascites / distention. Paracentesis pending. Also started on Lasix. In addition was noted to have LUE edema for which a venous duplex was done showing a non-occlusive subacute left subclavian vein thrombus and left axillary vein in addition to subacute occlusive thrombus in left brachial vein. Patients eliquis was held and heparin drip was started. 08/03 Increase abdominal distension. no fever, chills, nausea or vomiting. Medications: Reviewed: Yes Vitals/I&O/Wt Last Vital Signs Temp 97.6 F 08/03/20 15:01 Pulse 97 08/03/20 15:01 Resp 25 H 08/03/20 15:01 BP 91/54 08/03/20 15:01 Pulse Ox 96 08/03/20 15:01 08/03/20 08/03/20 08/03/20 06:59 14:59 22:59 Intake Total 125 / 0456.159 6389.167 / 1120.167 770.6 / 1890.767 Output Total 1150 / 1150 Balance 125 / 165.167 -29.833 / -29.833 770.6 / 740.767 Weight last 48 hrs Weight 124.239 kg Weight 121.608 kg Physical Exam Narrative: EXAM NARRATIVE: Constitutional: Awake and alert, oriented x 3, No distess. HEENT: Pupils are equally reactive, nasopharynx clear, oropharynx clear with moist mucous membranes Neck: Supple Respiratory: Clear to auscultation anteriorly, decreased at both bases, no rales or wheezes Cardiovascular: Tachycardic irregular rhythm, holosystolic murmur right upper s ternal border Abdomen: Significant abdominal girth, positive fluid wave, ascietes - increasing, soft along the left-sided quadrants, some areas of irregular firmness and nodularity noted in the right sided quadrants, positive bowel sounds, nontender Extremities: 3+ edema, no pain with palpation of knees Skin: Chronic stasis changes, no large bruises noted although not currently able to evaluate posterior portions of upper leg Neuro: Speech clear, face symmetric, moves all extremities Psych: Normal affect Data : 08/02/20 13:18 08/02/20 13:18 A&P Assessment and plan (1) Fall at home: Status: Acute Qualifiers: Encounter type: initial encounter Qualified Code(s): W19.XXXA - Unspecified fall, initial encounter; Y92.009 - Unspecified place in unspecified non-institutional (private) residence as the place of occurrence of the external cause (2) Atrial fibrillation with RVR: Status: Acute (3) Leukocytosis: Status: Acute Qualifiers: Leukocytosis type: unspecified Qualified Code(s): D72.829 - Elevated white blood cell count, unspecified (4) Ascites: Status: Acute Qualifiers: Ascites type: other type Qualified Code(s): R18.8 - Other ascites (5) Diastolic heart failure: Status: Chronic Qualifiers: Heart failure chronicity: acute on chronic Qualified Code(s): I50.33 - Acute on chronic diastolic (congestive) heart failure (6) Anemia: Status: Chronic Qualifiers: Anemia type: iron deficiency Iron deficiency anemia type: unspecified iron deficiency Qualified Code(s): D50.9 - Iron deficiency anemia, unspecified (7) Aortic stenosis: Status: Chronic Qualifiers: Cardiac valve disease etiology: etiology unspecified Qualified Code(s): I35.0 - Nonrheumatic aortic (valve) stenosis (8) Essential hypertension: Status: Chronic (9) Diabetes mellitus: Status: Chronic Qualifiers: Diabetes mellitus type: type 2 Diabetes mellitus residential insulin use: without residential use Diabetes mellitus complication status: with neurologic complications Diabetes mellitus complication detail: with polyneuropathy Qualified Code(s): E11.42 - Type 2 diabetes mellitus with diabetic polyneuropathy (10) Raynauds phenomenon: Status: Acute (11) Osteoarthritis of knees, bilateral: Status: Chronic Qualifiers: Osteoarthritis type: primary Qualified Code(s): M17.0 - Bilateral primary osteoarthritis of knee (12) BMI 45.0-49.9, adult: Status: Chronic Atrial Fibrillation with RVR * Cardizem ggt continue to titrate to keep HR < 110 * Cardizem 260 mg PO daily - Increased to 300 daily * Metoprolol increased to 75 mg PO BID * Eliquis 5 mg PO BID - Hold due to procedure * Lopressor 5 mg IV PRN * Will consult cardiology * Wean Cardizem drip Acute on chronic diastolic HF exacerbation * Lasix 40 mg IV BID * Replace K as needed * ECHO noted - pEF * Daily weight * Low na diet Abdominal distention due to Ascietes * Uncelar etiology - no h/o liver disease * Out of proportion for diastolic HF * Recently paracentesis - culture negative * Will require paracentesis on wednesday * Eliquis held - heparin ggt * CT Abd/Pelvis w/contrast - possible hepatic vein thrombosis * CMP in am * If Bp tolerates will add aldactone Leukocytosis * UA 2+ LE, no Ucx * Blood culture x 2 - NGTD * Rocephin 2g IV daily * Improving * CBC in am * Procalcitonin * Cdiff if diarrhea Left UE DVT * Venous duplex- Subacute lef.subclavian/axillary/brachial * Heparin gtt Thrombocytosis * Possibly reactive Hypertension * Metoprolol 75 mg PO BID * Diltiazem 300 mg daily * Lasix & Cardizem gtt Diabetes Mellitus * Sliding scale insulin * Qachs checks Gi ppx * Protonix DVT ppx * Heparin gtt Attestations Medical Necessity Statement*: Will require further hospitalization for management of atrial fib, hf exacerbation, ascietes Time Spent in Patient Care: Greater than 35 minutes (>than 50% of time spent in counselling and/or direct pt care on unit) . Coding Level of Care Code Acute Warp Splitter for Chg Fwd Diagnoses Fall at home W19.XXXA; Y92.009 Encounter type: initial encounter Atrial fibrillation with RVR I48.91 Leukocytosis D72.829 Leukocytosis type: unspecified Ascites R18.8 Ascites type: other type Diastolic heart failure I50.33 Heart failure chronicity: acute on chronic Anemia D50.9 Anemia type: iron deficiency Iron deficiency anemia type: unspecified iron deficiency Aortic stenosis I35.0 Cardiac valve disease etiology: etiology unspecified Essential hypertension I10 Diabetes mellitus E11.42 Diabetes mellitus type: type 2 Diabetes mellitus residential insulin use: without terminal operator use Diabetes mellitus complication status: with neurologic complications Diabetes mellitus complication detail: with polyneuropathy Raynauds phenomenon I73.00 Osteoarthritis of knees, bilateral M17.0 Osteoarthritis type: primary BMI 45.0-49.9, adult Z68.42
[2020-08-03 20:11] LABS: Glucose Point of Care 211 mg/dL (70-110)
[2020-08-03 23:57] LABS: Partial Thromboplastin Time 43.7 SECONDS (23.9-36.7)
[2020-08-04] VITALS (9 sets, daily range): BP systolic 96–119; BP diastolic 48–81; PULSE 95–118; RESP 18–28; TEMP 36.7–37.1; O2SAT 96–98
[2020-08-04 05:27] LABS: Basophils % 0.1 %; Eosinophils # 0.1 10^3/uL (0.0-0.8); Hematocrit 26.1 % (37.0-47.0); Hemoglobin 7.9 g/dL (11.5-15.3); Lymphocytes # 0.8 10^3/uL (0.8-4.8); Lymphocytes % 5.9 %; Mean Corpuscular HGB Conc 30.3 g/dL (30.0-36.0); Mean Corpuscular Hemoglobin 22.8 pg (28.0-34.0); Mean Corpuscular Volume 75.4 fL (81-99); Mean Platelet Volume 9.7 fL (7.4-10.4); Monocytes % 7.4 %; Neutrophils # 11.04 10^3/uL (1.8-7.7); Neutrophils % 82.7 %; Nucleated Red Blood Cells % 0.1 %; Platelet Count 656 10^3/cmm (130-400); Red Blood Count 3.46 10^6/uL (4.1-5.3); Red Cell Distribution Width 18.7 % (12.1-15.1); White Blood Count 13.4 10^3/uL (4.0-10.0)
[2020-08-04 05:52] LABS: Lactate (Lactic Acid level) 0.7 mmol/L (0.5-2.2); Procalcitonin 0.31 ng/mL (0-0.5)
[2020-08-04 05:55] LABS: Alanine Aminotransferase 25 U/L (0-33); Albumin Level 2.2 g/dL (3.5-5.2); Alkaline Phosphatase 168 IU/L (35-105); Anion Gap 10.9 (5-19); Aspartate Amino Transferase 24 U/L (0-32); Blood Urea Nitrogen 26 mg/dL (8-23); Calcium 7.9 mg/dL (8.5-10.5); Carbon Dioxide 25 mmol/L (22-29); Chloride 104 mmol/L (98-107); Creatinine Clr Calc Pharmacy 79.6198; Globulin 3.3 g/dL (1.3-4.6); Glomerular Filtration Rate 62.6 mL/min (90-130); Glucose 159 mg/dL (65-115); Magnesium 1.9 mg/dL (1.7-2.3); Osmolality Calculated 290 mOsm/kg (285-295); Potassium 3.9 mmol/L (3.5-5.1); Sodium 136 mmol/L (136-145); Total Bilirubin 0.4 mg/dL (0.15-1.2); Total Protein 5.5 g/dL (6.6-8.7)
[2020-08-04 06:39] LABS: Glucose Point of Care 157 mg/dL (70-110)
[2020-08-04] MEDS: FUROsemide 10 mg/mL SDV 4mL 40 MG IVP ×2 (06:40→15:10)
--- NOTE | 2020-08-04 07:25 | PC.OT ---
OT EVAL HELD, PATIENT STILL RECEIVING MEDICATION THAT IS CONTRAINDICATED FOR THERAPY TREATMENT, WILL ATTEMPT TOMORROW PER PROTOCOL.
[2020-08-04] MEDS: metoprolol tartrate 50 mg Tablet 75 MG PO ×2 (09:08→17:14)
[2020-08-04] MEDS: gabapentin 100 mg Capsule 200 MG PO ×3 (09:08→20:39)
[2020-08-04] MEDS: cholecalciferol (vitamin D3) 1,000 unit Tablet 2000 UNIT PO (09:08)
[2020-08-04] MEDS: dilTIAZem ER (24HR) 300 mg Capsule PO (09:08)
[2020-08-04] MEDS: ferrous sulfate EC 325 mg Tablet PO (09:08)
[2020-08-04 11:24] LABS: Glucose Point of Care 202 mg/dL (70-110)
--- NOTE | 2020-08-04 13:09 | PC.NURSE ---
Dr browne on unit for assessment verbal instructions to obtain Ct pelvis and abdomen with contrast after speaking with patient instructions to stop ct patient reports she is not able to lay flat verbal instructions to stop Heparin GTT at 0300 and obtain PTT at 0700 in preparation for parenthesis on Wednesday08/05/20
[2020-08-04 14:30] LABS: Partial Thromboplastin Time 37.1 SECONDS (23.9-36.7)
--- NOTE | 2020-08-04 14:30 | PC.NURSE ---
patient lost one IV access that was running elo browne notified instructions to leave out and dc elo carrillo
--- NOTE | 2020-08-04 14:40 | P.PN_ITS ---
Subjective Subjective: Interval history: 64 year old female with past medical history of morbid obesity, osteoarthritis, diabetes mellitus, neuropathy, hypertension, chronic diastolic heart failure who was recently seen by general surgery for abdominal distention due to increasing abdominal ascites req paracentesis ( 12L ) on 07/24 presented to the hospital with fall on 07/30. She was not able to get herself up laying on the floor for > 24hr. Denied any LOC, or head trauma. Upon arrival to ER initial labs showed WBC of 19.6, hemoglobin of 10.3, hematocrit of 32.6, platelet count of 893. INR of 1.61. Sodium of 138, potassium of 4.1, chloride of 102, bicarb of 19, BUN of 20 and a creatinine of 0.7. AST of 170 , ALT of 264, ALP 170. CK of 264. UA showed neg nitrates, 2+ leukocyte esterase, 15-25 wbc, 2+ bacteria. Chest x-ray showed cardiomegaly and pulmonary vascular congestion with bibasilar atelectasis vs infiltrates. Hip x-ray - neg. Echocardiogram showed EF of 65-70%, no regional wall motion abnormality, moderate aortic valve stenosis, mild to moderate MR. Patient was found to have atrial fibrillation with rapid ventricular response. Apparently patient had not taken any of her medications. Started on Cardizem gtt in additional to home rate control medication, also started on Rocephin 1g IV daily. Hospitalization was complicated with progressively increasing abdominal ascites / distention. Paracentesis pending. Also started on Lasix. In addition was noted to have LUE edema for which a venous duplex was done showing a non-occlusive subacute left subclavian vein thrombus and left axillary vein in addition to subacute occlusive thrombus in left brachial vein. Patients eliquis was held and heparin drip was started. 08/03 Increase abdominal distension. no fever, chills, nausea or vomiting. 08/04 Patient was not able to perform CT abd/Pelvis due to inability to lay flat. Abdominal distention has been increasing. No fever, chills, nausea or vomiting. Off cardizem gtt. No chest pain Medications: Reviewed: Yes Vitals/I&O/Wt Last Vital Signs Temp 98.0 F 08/04/20 10:48 Pulse 100 08/04/20 10:48 Resp 24 H 08/04/20 10:48 BP 106/81 08/04/20 10:48 Pulse Ox 96 08/04/20 10:48 08/03/20 08/04/20 08/04/20 22:59 06:59 14:59 Intake Total 770.6 / 1890.767 425 / 2315.767 869.183 / 869.183 Output Total 400 / 1550 1000 / 1000 Balance 370.6 / 340.767 425 / 765.767 -130.817 / -130.817 Weight last 48 hrs Weight 126.462 kg Weight 124.239 kg Physical Exam Narrative: EXAM NARRATIVE: Constitutional: Awake and alert, oriented x 3, No distess. HEENT: Pupils are equally reactive, nasopharynx clear, oropharynx clear with moist mucous membranes Neck: Supple Respiratory: Clear to auscultation anteriorly, decreased at both bases, no rales or wheezes Cardiovascular: Tachycardic irregular rhythm, holosystolic murmur right upper sternal border Abdomen: Significant abdominal girth, positive fluid wave, ascietes - increasing, soft along the left-sided quadrants, some areas of irregular firmness and nodularity noted in the right sided quadrants, positive bowel sounds, nontender Extremities: 3+ edema, no pain with palpation of knees Skin: Chronic stasis changes, no large bruises noted although not currently able to evaluate posterior portions of upper leg Neuro: Speech clear, face symmetric, moves all extremities Psych: Normal affect Data : 08/04/20 05:15 08/04/20 05:15 Micro: Microbiology 08/03/20 19:45 C.difficile Toxin B Gene (PCR) - Final Stool A&P Assessment and plan (1) Fall at home: Status: Acute Qualifiers: Encounter type: initial encounter Qualified Code(s): W19.XXXA - Unspecified fall, initial encounter; Y92.009 - Unspecified place in unspecified non-institutional (private) residence as the place of occurrence of the external cause (2) Atrial fibrillation with RVR: Status: Acute (3) Leukocytosis: Status: Acute Qualifiers: Leukocytosis type: unspecified Qualified Code(s): D72.829 - Elevated white blood cell count, unspecified (4) Ascites: Status: Acute Qualifiers: Ascites type: other type Qualified Code(s): R18.8 - Other ascites (5) Diastolic heart failure: Status: Chronic Qualifiers: Heart failure chronicity: acute on chronic Qualified Code(s): I50.33 - Acute on chronic diastolic (congestive) heart failure (6) Anemia: Status: Chronic Qualifiers: Anemia type: iron deficiency Iron deficiency anemia type: unspecified iron deficiency Qualified Code(s): D50.9 - Iron deficiency anemia, unspecified (7) Aortic stenosis: Status: Chronic Qualifiers: Cardiac valve disease etiology: etiology unspecified Qualified Code(s): I35.0 - Nonrheumatic aortic (valve) stenosis (8) Essential hypertension: Status: Chronic (9) Diabetes mellitus: Status: Chronic Qualifiers: Diabetes mellitus type: type 2 Diabetes mellitus residential insulin use: without exterminator use Diabetes mellitus complication status: with neurologic complications Diabetes mellitus complication detail: with polyneuropathy Qualified Code(s): E11.42 - Type 2 diabetes mellitus with diabetic polyneuropathy (10) Raynauds phenomenon: Status: Acute (11) Osteoarthritis of knees, bilateral: Status: Chronic Qualifiers: Osteoarthritis type: primary Qualified Code(s): M17.0 - Bilateral primary osteoarthritis of knee (12) BMI 45.0-49.9, adult: Status: Chronic Atrial Fibrillation with RVR * Diltiazem 300 ER PO daily * Metoprolol 75 mg PO BID * Eliquis 5 mg PO BID - Hold due to procedure * Lopressor 5 mg IV PRN * Will consult cardiology if persistently uncontrolled * D/c Cardizem gtt Acute on chronic diastolic HF exacerbation * Lasix 40 mg IV BID * Replace K as needed * ECHO noted - pEF, Mod * Daily weight Abdominal distention due to Ascietes * Unclear etiology - no h/o liver disease * Out of proportion for diastolic HF * Recently paracentesis - culture negative * US guided paracentesis in am - NPO at midnight * Eliquis held - heparin ggt to continue until early am, PT/INR in am * CT Abd/Pelvis w/contrast - possible portal vein thrombosis - Obtain CT after paracentesis * CMP in am * If Bp tolerates will add aldactone * Continue lasix as noted above. Leukocytosis * Improving 22->13 * UA 2+ LE, no Ucx * Blood culture x 2 - NGTD * Rocephin 2g IV daily * Improving * CBC in am * Cdiff if diarrhea Left UE DVT * Venous duplex- Subacute lef.subclavian/axillary/brachial * Heparin gtt as noted above. Thrombocytosis * Possibly reactive * Improving Anemia - iron deficiency * Monitor h/h * Ferrous sulfate Hypertension * Metoprolol 75 mg PO BID * Diltiazem 300 mg daily * Lasix Diabetes Mellitus * Sliding scale insulin * Qachs checks Neuropathy * Gabapentin 200 mg PO TID Gi ppx * Protonix DVT ppx * Heparin gtt Attestations Medical Necessity Statement*: Will require furhter hospitalization for management of ascietes and afib Time Spent in Patient Care: Greater than 35 minutes (>than 50% of time spent in counselling and/or direct pt care on unit) . Coding Level of Care Code Acute Semaphore Operator for Chg Fwd Diagnoses Fall at home W19.XXXA; Y92.009 Encounter type: initial encounter Atrial fibrillation with RVR I48.91 Leukocytosis D72.829 Leukocytosis type: unspecified Ascites R18.8 Ascites type: other type Diastolic heart failure I50.33 Heart failure chronicity: acute on chronic Anemia D50.9 Anemia type: iron deficiency Iron deficiency anemia type: unspecified iron deficiency Aortic stenosis I35.0 Cardiac valve disease etiology: etiology unspecified Essential hypertension I10 Diabetes mellitus E11.42 Diabetes mellitus type: type 2 Diabetes mellitus residential insulin use: without exterminator use Diabetes mellitus complication status: with neurologic complications Diabetes mellitus complication detail: with polyneuropathy Raynauds phenomenon I73.00 Osteoarthritis of knees, bilateral M17.0 Osteoarthritis type: primary BMI 45.0-49.9, adult Z68.42
[2020-08-04] MEDS: cefTRIAXone 2,000 MG in sodium chloride 0.9% (plus) 50 ML 100 MG IV (15:10)
[2020-08-04] MEDS: heparin drip 25,000 UNIT/500 ML PREMIX 31 UNIT IV (15:18)
[2020-08-04] MEDS: heparin 5,000 unit/mL INJ 1 mL IV (15:19)
[2020-08-04 16:13] LABS: Glucose Point of Care 247 mg/dL (70-110)
[2020-08-04 20:22] LABS: Glucose Point of Care 86 mg/dL (70-110)
[2020-08-05] VITALS (9 sets, daily range): BP systolic 96–115; BP diastolic 47–73; PULSE 98–133; RESP 18–25; TEMP 36.6–37.1; O2SAT 94–98; BMI 49.4
[2020-08-05 03:08] LABS: Basophils % 0.2 %; Eosinophils # 0.1 10^3/uL (0.0-0.8); Eosinophils % 0.8 %; Hematocrit 27.3 % (37.0-47.0); Hemoglobin 8.4 g/dL (11.5-15.3); Lymphocytes # 0.9 10^3/uL (0.8-4.8); Lymphocytes % 6.5 %; Mean Corpuscular HGB Conc 30.8 g/dL (30.0-36.0); Mean Corpuscular Volume 74.6 fL (81-99); Mean Platelet Volume 9.6 fL (7.4-10.4); Monocytes # 0.9 10^3/uL (0.2-0.9); Monocytes % 6.4 %; Neutrophils # 11.85 10^3/uL (1.8-7.7); Neutrophils % 83.2 %; Nucleated Red Blood Cells % 0.1 %; Platelet Count 719 10^3/cmm (130-400); Red Blood Count 3.66 10^6/uL (4.1-5.3); Red Cell Distribution Width 18.9 % (12.1-15.1); White Blood Count 14.3 10^3/uL (4.0-10.0)
[2020-08-05 03:19] LABS: INR 1.26 (0.8-1.2)
[2020-08-05 03:20] LABS: Partial Thromboplastin Time 43.6 SECONDS (23.9-36.7)
[2020-08-05 03:26] LABS: Alanine Aminotransferase 25 U/L (0-33); Albumin Level 2.3 g/dL (3.5-5.2); Alkaline Phosphatase 205 IU/L (35-105); Anion Gap 13.9 (5-19); Aspartate Amino Transferase 19 U/L (0-32); Blood Urea Nitrogen 23 mg/dL (8-23); Calcium 8.3 mg/dL (8.5-10.5); Carbon Dioxide 23 mmol/L (22-29); Chloride 101 mmol/L (98-107); Creatinine Clr Calc Pharmacy 79.6198; Globulin 3.4 g/dL (1.3-4.6); Glomerular Filtration Rate 62.6 mL/min (90-130); Glucose 156 mg/dL (65-115); Osmolality Calculated 285 mOsm/kg (285-295); Potassium 3.9 mmol/L (3.5-5.1); Sodium 134 mmol/L (136-145); Total Bilirubin 0.4 mg/dL (0.15-1.2); Total Protein 5.7 g/dL (6.6-8.7)
--- NOTE | 2020-08-05 04:00 | PC.NURSE ---
NURSING NOTE: PTT NOT DRAWN PER LAB AT 2100/NOT CAUGHT PER THIS NURSE UNTIL 0230 08/05/20. PTT DRAWN @ 0300. HEPARIN GTT SHUT OFF AT 0300 PER ORDERS FOR PARACENTESIS IN MORNING.
[2020-08-05] MEDS: FUROsemide 10 mg/mL SDV 4mL 40 MG IVP ×2 (06:06→15:29)
[2020-08-05 07:26] LABS: Glucose Point of Care 164 mg/dL (70-110)
[2020-08-05] MEDS: dilTIAZem ER (24HR) 300 mg Capsule PO (08:47)
[2020-08-05] MEDS: metoprolol tartrate 50 mg Tablet 75 MG PO ×2 (08:48→18:31)
--- NOTE | 2020-08-05 09:44 | PC.SOCIAL ---
*IMM UPDATE* Gave patient IMM update. Provided her copy of page 2. Verbalized understanding. 08/05/20 @ 0915 Initialed, dated, timed and placed in chart.
--- NOTE | 2020-08-05 10:00 | PC.NURSE ---
Updated pt regarding her upcoming procedure Pt was frustrated since she has not heard what time is her procedure. I informed pt that i have talked to the ultrasound dept. earlier and have heard any call back. Called them again and talked to them and they stated the radiologist doctor will do it in 2 to 3 pm. Pt verbalizes understanding.
--- NOTE | 2020-08-05 10:00 | PC.NURSE ---
Talked to Hospitalist Informed her regarding planned paracentesis later this afternoon at 2 to 3 pm per radiologist. Asked her if we can restart the Heparin drip back on. Verbal order to restart the heparin drip and hold an hour prior to the procedure. Initialized on 08/05/20 10:12 - END OF NOTE
--- NOTE | 2020-08-05 10:12 | PC.NURSE ---
Addendum entered by Vitaly Reyes RN 08/05/20 10:32: per protocol pt restarted back on 36 ml/hr and 5000 bolus on the last PTT taken at 3 am. Original Note: Talked to Hospitalist Informed her refgarding planned paracentesis later this afternoon at 2 to 3 pm per radiologist. ASked her if we can restart the Heparin drip back on. Verbal order to restart the heparin drip and hold an hour after the procedure.
[2020-08-05] MEDS: heparin drip 25,000 UNIT/500 ML PREMIX 36 UNIT IV ×2 (10:20→14:27)
[2020-08-05] MEDS: heparin 5,000 unit/mL INJ 1 mL IV (10:35)
[2020-08-05] MEDS: ferrous sulfate EC 325 mg Tablet PO (10:38)
[2020-08-05] MEDS: pantoprazole DR 40 mg Tablet PO (10:39)
[2020-08-05] MEDS: cholecalciferol (vitamin D3) 1,000 unit Tablet 2000 UNIT PO (10:39)
[2020-08-05] MEDS: gabapentin 100 mg Capsule 200 MG PO ×3 (10:39→20:08)
[2020-08-05 11:09] LABS: Glucose Point of Care 180 mg/dL (70-110)
--- NOTE | 2020-08-05 13:08 | PC.NURSE ---
Received a call from Ultrasound staff [facility] staff informed me that reschedule pt's Paracentesis for tomorrow at 10 am. Message to nurse to hold/stop Heparin drip 4 hrs prior to the procedure.
[2020-08-05] MEDS: cefTRIAXone 2,000 MG in sodium chloride 0.9% (plus) 50 ML 100 MG IV (15:29)
--- NOTE | 2020-08-05 15:43 | PM.PN ---
Subjective Subjective: Interval history: very uncomfortable. does get up to chair and BSC Vitals/I&O/Wt Last Vital Signs Temp 97.8 F 08/05/20 14:53 Pulse 107 H 08/05/20 14:53 Resp 25 H 08/05/20 14:53 BP 105/47 08/05/20 14:53 Pulse Ox 98 08/05/20 14:53 08/05/20 08/05/20 08/05/20 06:59 14:59 22:59 Intake Total 120 / 1753.250 648.2 / 648.2 Output Total 550 / 3550 800 / 800 Balance -430 / -1796.750 -151.8 / -151.8 Weight last 48 hrs Weight 126.462 kg Weight 126.462 kg Physical Exam Narrative: EXAM NARRATIVE: Moderate to severe discomfort from large amount of ascite and difficulty with mobility. H Irreg/afib/aflutter L clear at bases A: LARGE fluid wave, unable to ausc BS E: edema in Lower extremities. Data : 08/05/20 03:00 08/05/20 03:00 Other Labs: albumin less than 2.5 SAAG is <1.1 Micro: negative for bacteria, fungal or TB in peritoneal fluid A&P Assessment and plan (1) Ascites: SAAG is less than 1.1. This rules out pHTN, cirrhosis, and venous congestion. Low sodium diet. diuretics. Scheduled for another paracentesis. If over >6L will add albumin. Need to find etiology. Status: Acute Qualifiers: Ascites type: other type Qualified Code(s): R18.8 - Other ascites (2) Atrial fibrillation with RVR: Pt on b dimitri and Ca channel dimitri Status: Acute (3) Leukocytosis: Unknown etiology Status: Acute Qualifiers: Leukocytosis type: unspecified Qualified Code(s): D72.829 - Elevated white blood cell count, unspecified (4) Essential hypertension: on b dimitri and Ca channel dimitri Status: Chronic (5) BMI 45.0-49.9, adult: Status: Chronic Attestations Medical Necessity Statement*: Pt requiring further paracentesis will need another MN and then hopeful placement soon. Coding Level of Care Code Acute Auto Dealership Porter for g Fwd Diagnoses Ascites R18.8 Ascites type: other type Atrial fibrillation with RVR I48.91 Leukocytosis D72.829 Leukocytosis type: unspecified Essential hypertension I10 BMI 45.0-49.9, adult Z68.42
[2020-08-05 16:13] LABS: Glucose Point of Care 268 mg/dL (70-110)
--- NOTE | 2020-08-05 18:00 | PC.NURSE ---
hand off report transfer care to KRIS [place]. Informed her on pt's scheduled paracentesis tomorrow at 10 am. heparin drip needs to be stopped at 6 am prior to procedure.
[2020-08-05 19:56] LABS: Glucose Point of Care 205 mg/dL (70-110)
[2020-08-06] VITALS (11 sets, daily range): BP systolic 86–117; BP diastolic 61–86; PULSE 104–132; RESP 15–26; TEMP 36.6–36.8; O2SAT 92–96; BMI 49.9
[2020-08-06 01:10] LABS: Platelet Count 617 10^3/cmm (130-400)
[2020-08-06 01:20] LABS: Partial Thromboplastin Time 42.8 SECONDS (23.9-36.7)
[2020-08-06] MEDS: heparin 5,000 unit/mL INJ 1 mL IV (01:41)
[2020-08-06 05:03] LABS: Glucose Point of Care 148 mg/dL (70-110)
--- NOTE | 2020-08-06 05:26 | PC.NURSE ---
NURSE NOTE: AMS: THIS NURSE WENT IN TO CHECK ON PATIENT. PATIENT FLUSHED IN FACE AND WHEN SPOKE TO PATIENT, PATIENT RESPONDED IN GARBLED SENTENCES, SLOW TO RESPOND. COULD ANSWER QUESTIONS CORRECTLY, BUT DIFFICULT TO UNDERSTAND. SOME SENTENCES DID NOT MAKE SENSE AND VOICE VERY WEAK. PLACED VOALTE TEXT TO DR. BHATIA AT THIS TIME AND RECEIVED ORDERS FOR STAT HEAD CT WITHOUT CONTRAST AND STAT AMONIA LEVEL. WHEN ATTEMPTED TO TAKE PT TO CT, PT REFUSED STATING THAT SHE CANNOT LIE FLAT. STATED THAT SHE NEVER URINATES DURING THE NIGHT AND MAYBE SHE WAS JUST CONFUSED FOR A MOMENT. NOTIFIED DR. BHATIA OF PT REFUSAL. WILL CONTINUE TO MONITOR PATIENT.
[2020-08-06 06:38] LABS: Ammonia 25 umol/L (11-51)
[2020-08-06 06:39] LABS: Glucose Point of Care 160 mg/dL (70-110)
[2020-08-06] MEDS: ferrous sulfate EC 325 mg Tablet PO (08:47)
[2020-08-06] MEDS: cholecalciferol (vitamin D3) 1,000 unit Tablet 2000 UNIT PO (08:47)
[2020-08-06] MEDS: pantoprazole DR 40 mg Tablet PO (08:47)
[2020-08-06] MEDS: gabapentin 100 mg Capsule 200 MG PO ×3 (08:47→21:13)
[2020-08-06] MEDS: dilTIAZem ER (24HR) 300 mg Capsule PO (08:47)
[2020-08-06] MEDS: metoprolol tartrate 50 mg Tablet 75 MG PO (08:48)
--- NOTE | 2020-08-06 09:40 | PC.SOCIAL ---
IMM UPDATE Gave patient IMM update. Provided copy of pg 2. Verbalized understanding 08/06/20@ 1656 Initialed, dated, timed and placed in chart.
--- NOTE | 2020-08-06 09:47 | PC.CHAP ---
Pastoral Care Encounter/Spiritual Assessment Type of Contact [] Declined qi specialist visit [] Patient/Family/Request visit [] Outpatient visit [] Follow-up visit [] Physician referral [] Code/Alert [x] Routine visit [] Staff referral [] Actively dying [] Patient sleeping [] Family support [] [] Out of room [] Palliative care [] [x] Receiving care in room [] Pre-surgical visit [] Trauma [] Long length of stay [] ICU visit [] Other: Relational/Emotional Strength [] Patient feels connected with others/family/visitors/staff [] Distress [] Loneliness/isolation [] Abandonment Spirituality of Patient [] Person of Cathy [] Attends Pentecostalism of their Cathy [] Believes in Prayer [] Reads Bible or Episcopalian materials [] There are Spiritual issues to be addressed Mandolin Rep[employer] Person Interventions [x] Prayer [] Active listening [] Non-anxious presence [] Spiritual/emotional support [] Crisis/trauma care [] Spiritual counseling [] Bereavement support [] Provided bereavement packet [] Provided Bible/devotional materials [] Provided toy/stuffed animal, coloring book to patient or family member [] Provided Communion [] Anointing/[place] [] Salvation [x] Completed spiritual assessment [] Other: Impact on Illness or Injury [] Angry [] Fearful [] Anxious [] Often cries [] Exhaustion [] Unable to work [] Unable to attend holiness [] Unable to walk/stand [] Unable to read [] Unable to drive [] Unable to eat/drink [] Unable to sleep [] Unable to be with family [] Patient intubated [] Other: Summary Time spent with patient
--- NOTE | 2020-08-06 10:00 | US_ITS ---
WS: [id number] ULTRASOUND-GUIDED PARACENTESIS CLINICAL INFORMATION: ascietes COMPARISON: None. Procedure Informed consent: The risks, benefits, and alternatives of the procedure were discussed with the myrna ent. Verbal and written consent was obtained. Timeout: A timeout was performed to confirm the correct patient, procedure, and site. Preparation: A suitable skin site was identified. The patient was prepped and draped in usual sterile fashion. Lidocaine 1% was used for local anesthesia. Catheter: 4 Turkish One-step Yueh catheter. Side: Left Lower quadrant. Fluid Volume: 33807 ml Color: Clear yellow DISPOSITION: Discarded safely. Complications: None. US/US paracentesis abd w [id number] IMPRESSION: Uncomplicated ultrasound-guided paracentesis. Removal of 12,000 cc ascites
[2020-08-06 11:01] LABS: Glucose Point of Care 165 mg/dL (70-110)
[2020-08-06] MEDS: albumin 12.5 GM/50 ML VIAL IV (11:11)
--- NOTE | 2020-08-06 11:15 | PC.NURSE ---
Paracntesis completed. 12 liter bottles filled with ascitic fluid. Patient tilted to right side and paracentesis catheter removd. Bandage applied.
--- NOTE | 2020-08-06 13:47 | P.PN_ITS ---
Subjective Subjective: Interval history: Better after paracentesis. Now up in chair feeling much relief. Medications: Reviewed: Yes Vitals/I&O/Wt Last Vital Signs Temp 98.2 F 08/06/20 07:04 Pulse 104 H 08/06/20 11:20 Resp 15 08/06/20 11:20 BP 97/64 08/06/20 11:20 Pulse Ox 93 08/06/20 11:20 08/05/20 08/06/20 08/06/20 22:59 06:59 14:59 Intake Total 50 / 698.2 500 / 1198.2 240 / 240 Output Total 200 / 1000 750 / 1750 600 / 600 Balance -150 / -301.8 -250 / -551.8 -360 / -360 Weight last 48 hrs Weight 127.913 kg Weight 127.913 kg Weight 126.462 kg Physical Exam Narrative: EXAM NARRATIVE: Mild to moderate discomfort from large amount of ascites and difficulty with mobility. H regular today. L clear at bases A: LARGE fluid wave, unable to ausc BS; remains with pannus of fluid E: edema in upper and Lower extremities. Data : 08/06/20 01:03 08/05/20 03:00 Micro: Microbiology 07/31/20 23:15 Blood Culture - Final Blood NO GROWTH AFTER 5 DAYS 07/31/20 23:11 Blood Culture - Final Blood NO GROWTH AFTER 5 DAYS A&P Assessment and plan (1) Ascites: SAAG is less than 1.1. This rules out pHTN, cirrhosis, and venous congestion. Requires CT A/P. I thought this was already ordered but it was a CT head? Ordered stat CT A/P with contrast. Given 25 gm of albumin post paracentesis. Low sodium diet. Diuretics increased dose of lasix by doubling. Added aldactone 100 mg daily. Need to find etiology. Status: Acute Qualifiers: Ascites type: other type Qualified Code(s): R18.8 - Other ascites (2) Atrial fibrillation with RVR: Pt on b dimitri and Ca channel dimitri Status: Acute (3) Leukocytosis: Unknown etiology; remains elevated. Will monitor. Status: Acute Qualifiers: Leukocytosis type: unspecified Qualified Code(s): D72.829 - Elevated white blood cell count, unspecified (4) Essential hypertension: on b dimitri and Ca channel dimitri- BP soft. Will decrease meds since increasing diuretics. Status: Chronic (5) BMI 45.0-49.9, adult: large part is massive ascites Status: Chronic Attestations Medical Necessity Statement*: Work up for massive ascites now able to be done since removed 12 L of fluid today. Coding Level of Care Code Acute Registered Nurse Surgical Services for Chg Fwd Diagnoses Ascites R18.8 Ascites type: other type Atrial fibrillation with RVR I48.91 Leukocytosis D72.829 Leukocytosis type: unspecified Essential hypertension I10 BMI 45.0-49.9, adult Z68.42
--- NOTE | 2020-08-06 13:48 | CT_ITS ---
WS: [id number] CT ABDOMEN PELVIS TECHNIQUE: Contrast-enhanced CT of the abdomen and pelvis with coronal and sagittal reformatted image s. CLINICAL INFORMATION: abdominal thrombosis/ascites COMPARISON: None. DLP: 4627.[address] scans at [facility] use at least one of these dose optimization techniques: automat ed exposure control; mA and/or kV adjustment per patient size (includes targeted exams where dose is matched to clinical indication); or iterative reconstruction. FINDINGS: Mild perihepatic and perisplenic ascites. Moderate lower abdominal pannus ascites. Small amount of as cites in the pelvis. Cardiomegaly. Tiny bilateral pleural effusions. Cirrhotic configuration to the liver. Recommend corre lation with liver function studies. Dense cholelithiasis. Normal portal vein and splenic vein. IVC an d SMV appear patent. Spleen size upper limits of normal measuring 13 cm [id number]. Fatty atrophy of the pancreas. Mild diffuse fatty infiltration the liver. Prominent shotty lymph node s within the upper abdomen and agusto hepatis. Shotty periaortic and retroperitoneal lymph nodes. Numerous prominent paraesophageal lymph nodes. Sma ll esophageal hiatal hernia. Lymph nodes are nonspecific but likely reactive. Adrenal glands are normal. Normal renal parenchymal enhancement. No hydronephrosis. Chronic appearing left proximal ureteral calculus measuring 5.3 mm. No evidence of obstructing uropathy. Nonobstructin g subcentimeter right calyceal tip calculus measuring 7 mm. Disc space narrowing with mild disc bulging worse L4-L5 and L5-S1. Trace anterolisthesis L4 on L5. CT/CT abdomen pelvis w con* [id number] IMPRESSION: 1. Portal veins and splenic vein are patent. IVC is patent. SMV is patent. 2. Cirrhotic contour to the liver. Recommend correlation with liver function s tudies. Mild diffuse fatty infiltration 3. Prominent shotty upper abdominal and paraesophageal lymph nodes. Additional shotty lymph nodes in the agusto hepatis, periaortic and retroperitoneal region s nonspecific but likely reactive. 4. Small amount of perihepatic and perisplenic ascites. Moderate lower abdomin al ascites anteriorly in the abdominal pannus. 5. Trace pleural fluid. 6. Dense cholelithiasis.
--- NOTE | 2020-08-06 14:15 | PC.NURSE ---
Patient taken to CT scan and returned to room 45 mintue.
[2020-08-06] MEDS: iohexol 300 mg/mL 100 mL Btl IV ×2 (14:48→14:54)
[2020-08-06] MEDS: spironolactone 25 mg Tablet 100 MG PO (15:23)
[2020-08-06] MEDS: FUROsemide 10 mg/mL SDV 4mL 80 MG IVP (15:24)
[2020-08-06] MEDS: cefTRIAXone 2,000 MG in sodium chloride 0.9% (plus) 50 ML 100 MG IV (15:26)
[2020-08-06 16:36] LABS: Glucose Point of Care 192 mg/dL (70-110)
[2020-08-06] MEDS: metoprolol tartrate 25 mg Tablet PO (18:11)
--- NOTE | 2020-08-06 19:11 | PC.NURSE ---
Call placed to Dr. Maldonado regarding patient's increased HR 130-140. Reported giving scheduled metoprolol 25mg at 1800.
[2020-08-06 20:22] LABS: Glucose Point of Care 208 mg/dL (70-110)
[2020-08-07] VITALS (8 sets, daily range): BP systolic 94–112; BP diastolic 47–68; PULSE 102–132; RESP 19–23; TEMP 36.6–36.8; O2SAT 90–98
[2020-08-07] MEDS: FUROsemide 10 mg/mL SDV 4mL 80 MG IVP ×2 (05:33→15:11)
[2020-08-07 06:47] LABS: Glucose Point of Care 149 mg/dL (70-110)
[2020-08-07] MEDS: cholecalciferol (vitamin D3) 1,000 unit Tablet 2000 UNIT PO (08:13)
[2020-08-07] MEDS: gabapentin 100 mg Capsule 200 MG PO ×3 (08:13→21:18)
[2020-08-07] MEDS: metoprolol tartrate 25 mg Tablet PO ×2 (08:14→19:44)
[2020-08-07] MEDS: ferrous sulfate EC 325 mg Tablet PO (08:14)
[2020-08-07] MEDS: pantoprazole DR 40 mg Tablet PO (08:14)
[2020-08-07] MEDS: dilTIAZem ER (24HR) 300 mg Capsule PO (08:14)
[2020-08-07] MEDS: spironolactone 25 mg Tablet 100 MG PO (09:50)
[2020-08-07 09:55] LABS: Anion Gap 16.3 (5-19); Blood Urea Nitrogen 23 mg/dL (8-23); Calcium 8.4 mg/dL (8.5-10.5); Carbon Dioxide 21 mmol/L (22-29); Chloride 99 mmol/L (98-107); Glomerular Filtration Rate 55.5 mL/min (90-130); Glucose 240 mg/dL (65-115); Magnesium 1.7 mg/dL (1.7-2.3); Osmolality Calculated 286 mOsm/kg (285-295); Potassium 4.3 mmol/L (3.5-5.1); Sodium 132 mmol/L (136-145)
--- NOTE | 2020-08-07 10:00 | PC.CHAP ---
Pastoral Care Encounter/Spiritual Assessment Type of Contact [] Declined clinical recruiter visit [] Patient/Family/Request visit [] Outpatient visit [] Follow-up visit [] Physician referral [] Code/Alert [x] Routine visit [] Staff referral [] Actively dying [] Patient sleeping [] Family support [] [] Out of room [] Palliative care [] [] Receiving care in room [] Pre-surgical visit [] Trauma [] Long length of stay [] ICU visit [] Other: Relational/Emotional Strength [] Patient feels connected with others/family/visitors/staff [] Distress [] Loneliness/isolation [] Abandonment Spirituality of Patient [] Person of Cathy [] Attends Evangelical of their Cathy [] Believes in Prayer [] Reads Bible or Jew materials [] There are Spiritual issues to be addressed Multi [employer] Specialist Interventions [x] Prayer [x] Active listening [x] Non-anxious presence [x]Spiritual/emotional support [] Crisis/trauma care [] Spiritual counseling [] Bereavement support [] Provided bereavement packet [] Provided Bible/devotional materials [] Provided toy/stuffed animal, coloring book to patient or family member [] Provided Communion [] Anointing/[place] [] Salvation [x] Completed spiritual assessment [] Other: Impact on Illness or Injury [] Angry [] Fearful [] Anxious [] Often cries [] Exhaustion [] Unable to work [] Unable to attend mormonism [] Unable to walk/stand [] Unable to read [] Unable to drive [] Unable to eat/drink [] Unable to sleep [] Unable to be with family [] Patient intubated [] Other: Summary patient looking for answers to questions.. wants to work on results, but needs to know cause of issues .. Time spent with patient 10 min
--- NOTE | 2020-08-07 10:25 | CT_ITS ---
WS: [id number] CT CHEST TECHNIQUE: Noncontrast CT of the chest with coronal and sagittal reformatted images. CLINICAL INFORMATION: malignancy COMPARISON: None. DLP: 907.[address] scans at [facility] use at least one of these dose optimization techniques: automat ed exposure control; mA and/or kV adjustment per patient size (includes targeted exams where dose is matched to clinical indication); or iterative reconstruction. FINDINGS: Exam is limited due to patient positioning partial left side down with the left breast extending off the [id number]. Cardiomegaly. Prominent varicosities and venous collaterals along the left chest wall. A few slightly prominent left axillary lymph nodes the largest measuring 14 x 12 mm. This is nonspecific but likely reactive. No right axillary lymphadenopathy. Aortic calcification. Coronary calcification. No mediastinal or hilar lymphadenopathy. Coronary calci fication. Small esophageal hiatal hernia. A few prominent and shotty anterior mediastinal and paraesophageal lymph nodes. No mediastinal lympha denopathy. Tiny nodule posterior right thyroid lobe measuring 6 mm. Mild chronic emphysematous changes. No acute pulmonary infiltrates. No focal pneumonia or pleural flu id. No suspicious pulmonary parenchymal opacities. Slight hazy atelectasis left lung. No significant pleural fluid. Partially visualized abdominal ascites and cirrhotic liver. Hypertrophic changes thoracic spine. CT/CT chest wo con [id number] IMPRESSION: 1. Mild chronic emphysematous changes. No suspicious pulmonary parenchymal opa cities. 2. Shotty anterior mediastinal and paraesophageal lymph nodes. No mediastinal lymphadenopathy. 3. Cardiomegaly. 4. A few slightly prominent left axillary lymph nodes nonspecific but most lik cesario reactive, largest measures 12 x 14 mm. No right axillary lymphadenopathy. 5. Prominent varicosities and venous collaterals overlying the left anterior c hest wall. Left breast extends off the [id number]-lv-[id number] due to positioning. 6. Partially visualized abdominal ascites and cirrhotic liver.
--- NOTE | 2020-08-07 10:41 | PC.OT ---
OT tx attempted. Pt sitting up in chair. She voices she is frustrated with both her health situation and her room placement. Pt declines to participate in bathing at this time stating there is no room in here to do anything . She requests therapist to check back with her later today if possible as her roommate may be leaving. Therapist will attempt to return if possible.
[2020-08-07 11:16] LABS: Glucose Point of Care 259 mg/dL (70-110)
[2020-08-07 11:20] LABS: CA 125 259.5 U/mL (0-35)
[2020-08-07] MEDS: digoxin 250 mcg/ml INJ 2 mL 500 MCG IVP (12:33)
--- NOTE | 2020-08-07 12:45 | PC.NURSE ---
Dr rodriguez at bedside to speak with patient, patient expressed concerns of bad diarrhea Dr Rodriguez expressed the need for carbajal placement due to inaccurate I&O also discussed with patient about placement of rectal tube to measure accurate out put from there patient was very concerned at this time with placement she stated I will have to think about all that i have not wanted to have a carbajal placed.
[2020-08-07] MEDS: cefTRIAXone 2,000 MG in sodium chloride 0.9% (plus) 50 ML 100 MG IV (15:13)
--- NOTE | 2020-08-07 16:05 | PC.OT ---
OT tx attempted again at 1550. Pt still sitting up in chair. Nursing with pt discussing placing Wills catheter and rectal tube. Pt declines OT services stating I have too much going on right now . She thanks therapist for checking on her. Will attempt to resume again tomorrow.
[2020-08-07 16:14] LABS: Glucose Point of Care 224 mg/dL (70-110)
--- NOTE | 2020-08-07 17:30 | PC.NURSE ---
patient notified of transfer to [facility] in [place] patient telling this nurse at that time she would like to have the carbajal and rectal tube placed before the transfer
--- NOTE | 2020-08-07 17:45 | PC.NURSE ---
call to Dr Maldonado with telephone instructions to proceed with rectal tube placement and carbajal insertion
--- NOTE | 2020-08-07 19:00 | PC.NURSE ---
Received bedside report from KRIS Lambert. Patient resting in bed. Recently had rectal tube and carbajal catheter placed. Patient tolerating well. Plan to transfer patient to [facility]. Report has been called to [facility]. [facility] Tentative plan for 0100 08/08/20. Explained to patient plan for this evening. Patient verbalized understanding.
[2020-08-07] MEDS: digoxin 250 mcg/ml INJ 2 mL IVP ×2 (19:44→23:28)
[2020-08-07 21:42] LABS: Glucose Point of Care 240 mg/dL (70-110)
--- NOTE | 2020-08-08 01:35 | PC.NURSE ---
Patient taken by ambulance ground to [facility]. Report was called to [facility] prior to shift change by KRIS Lambert.
[2020-08-08 01:38] VITALS: BP 95/47; PULSE 102; RESP 23; TEMP 36.6; O2SAT 90
--- NOTE | 2020-08-08 12:18 | P.DS_ITS ---
Discharge Providers Date of Admission: 08/01/20 00:43 Date of Discharge: August 07, 2020 Attending Provider at Admission: Jeanette Rojo MD Attending Provider at Discharge: Bigg Pathak DO Diagnoses at Discharge Discharge Diagnosis (1) Ascites: Status: Acute Qualifiers: Ascites type: other type Qualified Code(s): R18.8 - Other ascites (2) Atrial fibrillation with RVR: Status: Acute (3) Leukocytosis: Status: Acute Qualifiers: Leukocytosis type: unspecified Qualified Code(s): D72.829 - Elevated white blood cell count, unspecified (4) Essential hypertension: Status: Chronic (5) BMI 45.0-49.9, adult: Status: Chronic Reason for Visit Reason for Visit: FALL Hospital Course Hospital Course This is a 64-year-old white female with history of hypertension atrial fibrillation diabetes mellitus. On July 24 patient had a high-volume paracentesis of 12 L removed. Subsequently she was started on Lasix and spironolactone. Patient had a fall most likely related to orthostatic hypotension or plain hypotension. She came to the emergency room for this event. Was found to have anasarca with a massive amount of ascites. She was also found to have a left brachial and subclavian vein thrombosis. This thrombosis occurred while on Eliquis for A. fib. Was changed to IV heparin. The patient had a second paracentesis on Wednesday, August 05. Another 20 another 12 L were removed. At that time she did receive albumin. Also her diuretics were increased. Unable to get accurate I's and O's due to the patient's body habitus as well as the massive ascites; she has not allowed a Wills catheter. Patient is running soft blood pressures with current regimen. She has a home regimen of Cardizem CD of 300 mg daily and metoprolol I believe was 75 mg twice daily. I have weaned the metoprolol down to 25 mg twice daily.. She remains tachycardic with soft blood pressures. Today I decided to treat with digoxin with fair effect. CT of the abdomen and pelvis done after the second 12 L paracentesis is fairly unremarkable. They mention shotty lymph nodes in the periesophageal periaortic area. They also mention of a cirrhotic contour to the liver. Note patient has no history of alcoholism or other indication of cirrhosis. Her studies on initial paracentesis show SAAG level less than 1.1 which rules out cirrhosis and portal hypertension. Consultation with [place] liver specialist occurred today. He felt strongly this is most likely a malignancy. Since ovarian cancer would be the most common malignancy I obtained CA-125. This antigen was 259.5 and normal is up to 35. Due to Presumptive malignancy I ordered CT chest. This shows chronic emphysematous changes no suspicious opacities. Again shotty anterior mediastinal and paraesophageal lymph nodes. There is a feeling a few slight prominent left axillary lymph nodes nonspecific but most likely reactive the lar gest is 12 x 14. This reports mentions cirrhotic liver. And abdominal ascites. Further work-up is beyond capabilities of this small [facility]. There is no GI specialty to assist with ascites management. There is no interventional radiologist for lymph node biopsy. Patient and her son who is currently in [place] have been updated. Physical Exam Narrative: EXAM NARRATIVE: Ggen: Moderate discomfort from large amount of ascites and difficulty with mobility. H Irreg/afib/aflutter, rate of 110-120 after digoxin. no loud murmur ausc. L clear at bases A: LARGE fluid wave, unable to ausc BS E: anasarca of 4 ext. Discharge Data Data Completed and Pending: Completed Studies During Hospitalization Category Date Time Status CT abdomen pelvis w con* [id number] Stat Cat Scan 08/06/20 13:[address] chest wo con 7 [id number] Routine Cat Scan 08/07/20 10:25 Completed XR chest 1V agusto ble [id number] Urgent Exams 07/31/20 20:50 Completed XR hip BI 3-4V wo /w pel [id number] Stat Exams 07/31/20 20:55 Completed CV echo complete* [id number] Routine Ultrasound 08/02/20 06:00 [place] w [id number] Routine Ultrasound 08/06/20 10:00 Completed US venous duplex upper extremity LT [CV venous duplex Ultrasound 08/02/20 16:33 [place] [id number]] Rout ine Labs from last 24 hours 08/07/20 08/07/20 08/07/20 16:12 11:13 09:19 Sodium Potassium Chloride Carbon Dioxide Anion Gap BUN Creatinine GFR Calculation Glucose POC Glucose 224 H 259 H Calculated Osmolal ity Calcium Magnesium CA 125 Antigen 259.5 H 08/07/20 08/07/20 08/06/20 09:19 06:42 20:09 Sodium 132 L Potassium 4.3 Chloride 99 Carbon Dioxide 21 L Anion Gap 16.3 BUN 23 Creatinine 1.0 H GFR Calculation 55.5 L Glucose 240 H POC Glucose 149 H 208 H Calculated Osmolal ity 286 Calcium 8.4 L Magnesium 1.7 CA 125 Antigen Vitals: Last Vital Signs Temp 97.9 F 08/07/20 15:37 Pulse 114 H 08/07/20 15:37 Resp 21 H 08/07/20 15:37 BP 99/68 08/07/20 15:37 Pulse Ox 98 08/07/20 12:00 Discharge Plan Discharge Patient Disposition: Home Condition: Stable Prescriptions: No Action gabapentin 300 mg capsule 300 mg PO TID RF: 0 (DME) Diabetic Shoes See Rx Instructions .ROUTE .MEDSUPPLY Qty: 1 RF: 0 multivitamin [Multiple Vitamins] Tablet 1 tab PO DAILY RF: 0 cholecalciferol (vitamin D3) [Vitamin D3] 50 mcg (2,000 unit) tablet 50 mcg PO DAILY RF: 0 [employer] [facility] 750 mg-100 mg- 1.65 mg-108 mg tablet 1 tab PO DAILY RF: 0 furosemide 40 mg tablet 40 mg PO DAILY PRN (Reason: weight gain) Qty: 90 RF: 3 potassium chloride 20 mEq tablet extended release 20 meq PO DAILY PRN (Reason: Take with Lasix) Qty: 90 RF: 3 Eliquis 5 mg tablet 5 mg PO BID Qty: 60 RF: 5 Cardizem CD 240 mg capsule,extended release 24hr 240 mg PO DAILY Qty: 90 RF: 3 ferrous sulfate 325 mg (65 mg iron) tablet 325 mg PO DAILY@08 RF: 0 metformin 500 mg tablet extended release 24 hr 500 mg PO QAM RF: 0 metoprolol tartrate 50 mg tablet 50 mg PO BID RF: 0 Tracey Allergy 1 tab PO DAILY RF: 0 spironolactone 25 mg tablet 25 mg PO QAM PRN (Reason: Edema) RF: 0 Other Ambulatory Orders: DME: Walker (Order) Location: None Selected Ordered By: April Fisher Referrals: [facility] [Outside] Patient Instructions: Opioid Safety Discharge Attestations Time Spent in Discharge Care*: greater than 30 min Specific Discharge Activities: educating patient, educating and/or supporting family/caregiver, discussing with pcp/other providers, discussing with family service caseworker/social workers/dc planners and documenting/other paperwork Quality Metrics Clinical Quality Measures During this hospital stay, did patient experience: None Coding Level of Care Code Acute Chg FW DC note Diagnoses Ascites R18.8 Ascites type: other type Atrial fibrillation with RVR I48.91 Leukocytosis D72.829 Leukocytosis type: unspecified Essential hypertension I10 BMI 45.0-49.9, adult Z68.42
--- NOTE | 2020-09-12 22:32 | PM.PN ---
Subjective Subjective: Interval history: Pt very uncomfortable and unable to ambulate well. Medications: Reviewed: Yes Vitals/I&O/Wt Last Vital Signs Temp 98 F 08/08/20 01:38 Pulse 102 H 08/08/20 01:38 Resp 23 H 08/08/20 01:38 BP 95/47 08/08/20 01:38 Pulse Ox 90 08/08/20 01:38 Physical Exam Narrative: EXAM NARRATIVE: Ggen: Moderate discomfort from large amount of ascites and difficulty with mobility. H Irreg/afib/aflutter, rate of 110-120 after digoxin. no loud murmur ausc. L clear at bases A: LARGE fluid wave, unable to ausc BS E: anasarca of 4 ext. Urinary Catheter Management^: Wills: Cath Placed During This Visit: yes Reason for Continuing Indwelling Catheter: Acute Urinary Retention or Obstruction Urinary Catheter Date of Insertion: 08/07/20 Urinary Catheter Time of Insertion: 18:41 Data : 08/06/20 01:03 08/07/20 09:19 A&P Assessment and plan (1) Ascites: SAAG is less than 1.1. This rules out pHTN, cirrhosis, and venous congestion. Requires CT A/P. I thought this was already ordered but it was a CT head? Ordered stat CT A/P with contrast. Given 25 gm of albumin post paracentesis. Low sodium diet. Diuretics increased dose of lasix by doubling. Added aldactone 100 mg daily. Need to find etiology. Called [facility] to transfer patient. Accepted by Dr. Logan Hudson [place] Hospitalist Delineator. Then during Rn'ing report [facility] PONCE sugessted that transfer to her floor 3a was 'inappropriate . I called and spoke to the call manager and / Dami accepted. Status: Acute Qualifiers: Ascites type: other type Qualified Code(s): R18.8 - Other ascites (2) Atrial fibrillation with RVR: Pt on b dimitri and Ca channel dimitri Status: Acute (3) Leukocytosis: Unknown etiology; remains elevated. Will monitor. Status: Acute Qualifiers: Leukocytosis type: unspecified Qualified Code(s): D72.829 - Elevated white blood cell count, unspecified (4) Essential hypertension: on b dimitri and Ca channel dimitri- BP soft. Will decrease meds since increasing diuretics. Status: Chronic (5) BMI 45.0-49.9, adult: large part is massive ascites Status: Chronic Attestations Medical Necessity Statement*: Pt with severe anasarca and positive malignant cells. Needs higher level of care. [facility] Coding Level of Care Code Acute Floor Covering Installer for Chg Fwd Diagnoses Ascites R18.8 Ascites type: other type Atrial fibrillation with RVR I48.91 Leukocytosis D72.829 Leukocytosis type: unspecified Essential hypertension I10 BMI 45.0-49.9, adult Z68.42
== END 2020-08-08 01:39 | disposition short-term general hospital (02) | DRG 308 ==
LOC: ER 21:23 → CSU 08-01 08:05
PROVIDERS: Hospitalist; Admitting Provider Hospitalist; Emergency Provider Emergency Medicine; Visit Provider Internal Medicine
DX: I48.91 Unspecified atrial fibrillation (principal); I50.33 Acute on chronic diastolic (congestive) heart failure; R18.8 Other ascites; Z68.41 Body mass index [BMI] 40.0-44.9, adult; I82.622 Acute embolism and thrombosis of deep veins of left upper extremity; W01.190A Fall on same level from slipping, tripping and stumbling with subsequent striking against furniture, initial encounter; Y93.9 Activity, unspecified; Y92.009 Unspecified place in unspecified non-institutional (private) residence as the place of occurrence of the external cause; M17.0 Bilateral primary osteoarthritis of knee; R19.7 Diarrhea, unspecified; G89.29 Other chronic pain; I35.0 Nonrheumatic aortic (valve) stenosis; E66.01 Morbid (severe) obesity due to excess calories; E11.42 Type 2 diabetes mellitus with diabetic polyneuropathy; I11.0 Hypertensive heart disease with heart failure; I73.00 Raynaud's syndrome without gangrene; Z91.128 Patient's intentional underdosing of medication regimen for other reason; D47.3 Essential (hemorrhagic) thrombocythemia; D50.9 Iron deficiency anemia, unspecified; Z79.84 Long term (current) use of oral hypoglycemic drugs; Z79.01 Long term (current) use of anticoagulants; R59.0 Localized enlarged lymph nodes; R97.1 Elevated cancer antigen 125 [CA 125]; I95.1 Orthostatic hypotension; K76.0 Fatty (change of) liver, not elsewhere classified
CPT/HCPCS: 36415; 36416; 49083; 51702; 71045; 71250; 73521; 73522; 74177; 80048; 80053; 81001; 82140; 82550; 82962; 83036; 83605; 83735; 84145; 85025; 85049; 85610; 85730; 86304; 87040; 87493; 90471; 90732; 93005; 93306; 93971; 96365; 96366; 96367; 96372; 96375; 96376; 97110; 97116; 97161; 97165; 97530; 97535; 99285; G0378; J0696; J1160; J1644; J1815; J1940; J3490; J7030; J7040; P9047; Q9967